=== PATIENT | male | born 1950 | race Hispanic/Latino ===

== ENCOUNTER 2017-07-15 13:57 | Observation (INO) | payer MEDICARE ==
[2017-07-15] MEDS ORDERED: Sodium Chloride 0.9% 1,000 ML IV STA (14:38)
--- NOTE | 2017-07-15 14:45 | ED PDOC ---
Arrival/HPI - General Chief Complaint: Weakness/Neurological Deficit Time Seen by Provider: 07/15/17 13:59 Historian: Patient, Spouse - History of Present Illness Narrative History of Present Illness (Text): you were treated in the ED today for hx of Parkinson'sand walks with a walker, diabetes, sleep apnea, bipolar, diverticulitis, having gouty attack of the left first toe and received a cortisone shot in the toe with improvement and put on ibprofen treatment and having had a single episode of dark vomiting and four episodes of dark black diarrhea and mild abdomen discomfort with generalized weakness/fatigue with difficulty walking but otherwise without any current nausea/vomiting/headache/dizziness/difficulty breathing/chest pain/abdomen pain/ numbness/tingling/loss of limb function/pain with urination. Time/Duration: Other (3 days) Symptom Onset: Gradual Symptom Course: Unchanged Quality: Aching Severity Level: 1 Activities at Onset: Rest Context: Sitting Past Medical History - Provider Review Nursing Documentation Reviewed: Yes - Travel History Have you recently traveled outside [place] w/in the past 3 mons?: No - Infectious Disease Hx of Infectious Diseases: None - Tetanus Immunization Tetanus Immunization: Unknown - Cardiac Hx Cardiac Disorders: No - Pulmonary Hx Respiratory Disorders: Yes Hx Asthma: Yes Hx Bronchitis: Yes - Neurological Hx Neurological Disorder: No - HEENT Hx HEENT Disorder: No - Renal Hx Renal Disorder: No - Endocrine/Metabolic Hx Endocrine Disorders: No Hx Diabetes Mellitus Type 2: Yes - Hematological/Oncological Hx Blood Disorders: No - Integumentary Hx Dermatological Disorder: No - Musculoskeletal/Rheumatological Hx Musculoskeletal Disorders: Yes Hx Falls: Yes Hx Gout: Yes Hx Herniated Disk: No Hx Myasthenia Gravis: No Hx Osteoarthritis: No Hx Unsteady Gait: Yes Other/Comment: PARKINSONS - Gastrointestinal Hx Gastrointestinal Disorders: Yes Hx Gastrointestinal Ulcer: Yes - Genitourinary/Gynecological Hx Genitourinary Disorders: No - Psychiatric Hx Psychophysiologic Disorder: No Hx Substance Use: No - Surgical History Hx Amputation: No Hx Appendectomy: No Hx Cardiac Catheterization: No Hx Cholecystectomy: No Hx Coronary Stent: No Hx Gastric Bypass Surgery: No Hx Hysterectomy: No Hx Joint Replacement: No Hx Kidney Transplant: No Hx Liver Transplant: No Hx Mastectomy: No Hx Musculoskeletal Surgery: No Hx Open Heart Surgery: No Hx Orthopedic Surgery: No Hx Splenectomy: No Hx Valve Replacement: No - Anesthesia Hx Anesthesia Reactions: No Hx Malignant Hyperthermia: No - Suicidal Assessment Feels Threatened In Home Enviroment: No Family/Social History - Physician Review Nursing Documentation Reviewed: Yes Family/Social History: Unknown Family HX Smoking Status: Current Some Days Smoker Hx Alcohol Use: Yes (SOCIALLY) Hx Substance Use: No Hx Substance Use Treatment: No Allergies/Home Meds Allergies/Adverse Reactions: Allergies Sulfa (Sulfonamide Antibiotics) Allergy (Verified 07/15/17 14:12) RASH Home Medications: Home Meds Medication Instructions Recorded Confirmed Enalapril Maleate [Enalapril] 20 mg PO BID 09/13/11 04/30/16 Fluvoxamine Maleate [Fluvoxamine] 100 mg PO DAILY 09/13/11 04/30/16 Carbidopa/Levodopa [Carbidopa-Levo 1 each PO TID 05/09/15 04/30/16 ER 25-100 Tab] Divalproex Sodium 500 mg PO DAILY 05/09/15 04/30/16 Divalproex Sodium 500 mg PO HS 05/09/15 04/30/16 Docusate [Colace] 100 mg PO DAILY 04/27/16 04/30/16 Multivit-Min/FA/Lycopen/Lutein 1 each PO DAILY 04/27/16 04/30/16 [Centrum Silver Men Tablet] ALPRAZolam [Xanax] 1 mg PO TID 04/30/16 Acidoph/L.bulg/Bif.b/S.thermop 1 tab PO DAILY 04/30/16 [Adilia-Bid 5%-80%-10%-5%] Carvedilol [Coreg] 25 mg PO BID 04/30/16 GlipiZIDE [Glucotrol] 5 mg PO BID 04/30/16 Review of Systems - Review of Systems Constitutional: Fatigue Eyes: Normal ENT: Normal Respiratory: Normal Cardiovascular: Normal Gastrointestinal: Abdominal Pain, Stool Changes, Diarrhea Genitourinary Male: Normal Musculoskeletal: Normal Skin: Normal Neurological: Normal Endocrine: Normal Hemo/Lymphatic: Normal Psychiatric: Normal Physical Exam Vital Signs Reviewed: Yes Vital Signs Temp Pulse Resp BP Pulse Ox 07/15/17 17:26 71 18 120/74 100 07/15/17 15:25 97.6 F 69 18 112/46 L 100 Appearance: Positive for: Well-Appearing, Non-Toxic, Comfortable Pain Distress: None Mental Status: Positive for: Alert and Oriented X 3 - Systems Exam Head: Present: Atraumatic, Normocephalic Pupils: Present: PERRL Extroacular Muscles: Present: EOMI Conjunctiva: Present: Normal Ears: Present: Normal Mouth: Present: Moist Mucous Membranes Pharnyx: Present: Normal Nose (External): Present: Atraumatic Nose (Internal): Present: Normal Inspection Neck: Present: Normal Range of Motion Respiratory/Chest: Present: Clear to Auscultation, Good Air Exchange Cardiovascular: Present: Regular Rate and Rhythm Abdomen: No: Tenderness, Distention, Normal Bowel Sounds, Peritoneal Signs, Rebound, Guarding, McBurney's Point Tender, Rovsing's Sign Present, Hernias, Feeding Tubes, Ostomy Tubes, Mass/Organomegaly, Scars, Other Rectal: Present: Occult Blood (positive) Back: Present: Normal Inspection Upper Extremity: Present: Normal Inspection Lower Extremity: Present: Normal Inspection, Other ( left toe without redness and otherwise warm/sensation/pink/good distal pulses and no bony tenderness) Neurological: Present: GCS=15, CN II-XII Intact, Speech Normal, Motor Func Grossly Intact Skin: Present: Warm, Normal Color Psychiatric: Present: Alert, Oriented x 3, Normal Insight, Normal Concentration Medical Decision Making ED Course and Treatment: you were treated in the ED today for hx of Parkinson'sand walks with a walker, diabetes, sleep apnea, bipolar, diverticulitis, having gouty attack of the left first toe and received a cortisone shot in the toe with improvement and put on ibprofen treatment and having had a single episode of dark vomiting and four episodes of dark black diarrhea and mild abdomen discomfort with generalized weakness/fatigue with difficulty walking but otherwise without any current nausea/vomiting/headache/dizziness/difficulty breathing/chest pain/abdomen pain/ numbness/tingling/loss of limb function/pain with urination. You were otherwise breathing easily, smiling and talking easily with your , good strength/ sensation, clear lungs, no abdomen tenderness, rectal exam with dark specks and positive for guaic test but no active bleeding, left toe without redness and otherwise warm/sensation/pink/good distal pulses and no bony tenderness, no fever temp 97.6, stable heart rate 69, stable breathing rate 18, excellent oxygen level 100% room air, stable blood pressure 112/46 which we recommend repeat in 2-3 days primary care office to determine further treatment, you have blood tests no infection count 12, stable blood level hemoglobin 11 but a drop from 18 (2016) and 17 (2012)/platelets 131, stable chemistry, heart blood test negative less than 0.01, lipase normal 133, urine test no acute sign of infection leukocyte/nitrite negative, radiology ct abdomen/pelvis no acute findings, ECG normal sinus rhythm, saline, protonix, observation done in the ED , had long discussion with and patient who refused ct head and stated generalized fatigue due to dehydration/parkinson's and want ivf hydration at this time and agreed to ct abdomen/pelvis. d/w Dr. Brannon who stated can consider [facility] short turn around tomorrow but if patient concern can admit if patient wants due to though blood level hemoglobin 11 but a drop from 18 ( 2016) and 17 (2012)and thus had long discussion with and patient who expressed concern for dark stool and if recurrent episodes to stay in the hospital for further observation/care for gib, thus order protonix, cbc in the am, ivf, Dr. Velez GI consultation. ct a/p: post-operative changes. no bowel obstruction. no sign of diverticulitis. no free air. no fluid collection. 07/15/17 18:56 07/15/17 19:02 07/15/17 19:07 Reassessment Condition: Re-examined - Lab Interpretations Lab Results: 07/15/17 15:35 07/15/17 15:35 Lab Results 07/15/17 17:25: Urine Color Yellow, Urine Appearance Clear, Urine pH 6.0, Ur Specific [place] 1.010, Urine Protein Negative, Urine Glucose (UA) Negative, Urine Ketones Negative, Urine Blood Negative, Urine Nitrate Negative, Urine Bilirubin Negative, Urine Urobilinogen 0.2, Ur Leukocyte Esterase Negative 07/15/17 15:35: Sodium 138, Potassium 5.5 H, Chloride 101, Carbon Dioxide 26, Anion Gap 16, BUN 96 H, Creatinine 1.5, Est GFR ( Amer) 56, Est GFR (Non- Af Amer) 47, Random Glucose 219 H, Calcium 9.3, Magnesium 2.2, Total Bilirubin 0.3, AST 29, ALT 26, Alkaline Phosphatase 31 L, Lactate Dehydrogenase 378, Total Creatine Kinase 83, Troponin I < 0.01, Total Protein 5.5 L, Albumin 3.3, Globulin 2.3, Albumin/Globulin Ratio 1.5, Lipase 133 07/15/17 15:35: PT 12.5, INR 1.09 H, APTT 23.4 L 07/15/17 15:35: WBC 12.0 H D, RBC 3.41 L, Hgb 11.3 L, Hct 32.7 L, MCV 95.9, MCH 33.1, MCHC 34.6, RDW 13.3, Plt Count 131, MPV 10.8, Gran % 60.7, Lymph % (Auto) 32.3, [place] % (Auto) 4.5, Eos % (Auto) 2.2, Baso % (Auto) 0.3, Gran # 7.29 H, Lymph # (Auto) 3.9 H, [place] # (Auto) 0.5, Eos # (Auto) 0.3, Baso # (Auto) 0.04 I have reviewed the lab results: Yes - RAD Interpretation Radiology Orders: 07/15/17 16:10 ABDOMEN & PELVIS [ABD & PELVIS IV CONTRAST ONLY] [CT] Stat Senior Sales Operations Manager: Radiologist (see mdm) - EKG Interpretation Interpreted by ED Physician: Yes (NSR flipped t waves avr, avl) Type: 12 lead EKG - Medication Orders Current Medication Orders: Sodium Chloride (Sodium Chloride 0.9%) 1,000 mls @ 100 mls/hr IV .Q10H ORION Discontinued Medications Sodium Chloride (Sodium Chloride 0.9%) 1,000 mls @ 999 mls/hr IV .Q1H1M STA Stop: 07/15/17 15:38 Last Admin: 07/15/17 15:41 Dose: 999 mls/hr eMAR Start Stop Document 07/15/17 15:41 HI (Rec: 07/15/17 15:41 HI [id number]) Intravenous Solution Start Date 07/15/17 Start Time 15:41 Pantoprazole Sodium (Protonix Inj) 80 mg IVP STAT STA Stop: 07/15/17 14:39 Last Admin: 07/15/17 15:41 Dose: 80 mg IVP Administration Document 07/15/17 15:41 HI (Rec: 07/15/17 15:41 HI [id number]) Charges for Administration # of IVP Administrations 2 Pantoprazole Sodium (Protonix Inj) 40 mg IVP BIDWM STA Stop: 07/15/17 18:45 Disposition/Present on Arrival - Present on Arrival Any Indicators Present on Arrival: No History of DVT/PE: No History of Uncontrolled Diabetes: No Urinary Catheter: No History of Decub. Ulcer: No History Surgical Site Infection Following: None - Disposition Have Diagnosis and Disposition been Completed?: Yes Diagnosis: Gait difficulty, Diarrhea, GIB (gastrointestinal bleeding) Disposition: HOSPITALIZED Disposition Time: 19:09 Patient Plan: Admission Patient Problems: Current Active Problems Problem Status Onset Gait difficulty Acute Diarrhea Acute Condition: STABLE
[2017-07-15 15:44] LABS: BASO # 0.04 K/mm3 (0.0-2.0); BASO % 0.3 % (0.0-3.0); EOS # 0.3 (0.0-0.7); EOS % 2.2 % (1.5-5.0); GRAN # 7.29 (1.4-6.5); GRAN % 60.7 % (50.0-68.0); HEMOGLOBIN 11.3 g/dL (14.0-18.0); LYMPH # 3.9 (1.2-3.4); LYMPH % 32.3 % (22.0-35.0); MEAN CELL VOLUME 95.9 fl (80.0-105.0); MEAN CORPUSCULAR HEMOGLOBIN 33.1 pg (25.0-35.0); MEAN CORPUSCULAR HGB CONC 34.6 g/dl (31.0-37.0); MEAN PLATELET VOLUME 10.8 fl (7.0-11.0); MONO # 0.5 (0.1-0.6); MONO % 4.5 % (1.0-6.0); RBC 3.41 10^6/uL (3.5-6.1); RED CELL DISTRIBUTION WIDTH 13.3 % (11.5-14.5)
[2017-07-15 15:53] LABS: INR 1.09 (0.93-1.08); PARTIAL THROMBOPLASTIN TIME 23.4 Seconds (25.1-36.5); PROTHROMBIN TIME 12.5 SECONDS (9.4-12.5)
[2017-07-15 15:55] LABS: ALB/GLOB RATIO 1.5 (1.1-1.8); ALBUMIN 3.3 g/dL (3.0-4.8); ALT/SGPT 26 U/L (7-56); AST/SGOT 29 U/L (17-59); BLOOD UREA NITROGEN 96 mg/dL (7-21); CALCIUM 9.3 mg/dL (8.4-10.5); GFR AFRICAN-AMERICAN 56; GFR NON-AFRICAN AMERICAN 47; LIPASE 133 U/L (23-300)
[2017-07-15 16:05] LABS: TROPONIN I < 0.01 ng/mL
[2017-07-15] MEDS ORDERED: Iodixanol 320 MG/ML 100 ML BOTTLE IV ONE (16:18)
[2017-07-15 17:36] LABS: URINE BILIRUBIN NEGATIVE (NEGATIVE); URINE BLOOD NEGATIVE (NEGATIVE); URINE GLUCOSE (UA) NEGATIVE (NEGATIVE); URINE LEUKOCYTE ESTERASE NEGATIVE Leu/uL (NEGATIVE); URINE PROTEIN NEGATIVE mg/dL (<30 mg/dL); URINE UROBILINOGEN 0.2 E.U./dL (<1 E.U./dL)
[2017-07-15 17:37] LABS: URINE APPEARANCE CLEAR (CLEAR); URINE COLOR YELLOW (YELLOW)
--- NOTE | 2017-07-15 17:42 | CT ---
PROCEDURE: CT abdomen pelvis dated 07/07/2017. HISTORY: 67yoM, hx of diverticulitis, w abdomen discomfort. 67 year-old male with history of diverticulitis, w abdomen discomfort. . Technologist notation indicates history of umbilical hernia, cholecystectomy, appendectomy and colostomy. COMPARISON: Comparison made with CT scan chest, abdomen pelvis dated 05/12/2012. TECHNIQUE: Contiguous axial images of the abdomen and pelvis performed of following intravenous injection of approximately 100 cc Visipaque 320 contrast material. Additional 2D sagittal and coronal reformats generated. This CT exam was performed using one or more of the following dose reduction techniques: Automated exposure control, adjustment of the mA and/or kV according to patient size, and/or use of iterative reconstruction technique. Radiation dose: Total exam DLP = 769.03 mGy-cm. FINDINGS: LOWER THORAX: R appears mildly enlarged. No significant pericardial effusion. There is some curvilinear atelectasis/scarring changes left medial lung base LIVER: The liver exhibits relatively normal size measuring approximately 16.6 cm in cc dimension. . Mild to moderate fatty hepatic infiltration. No obvious hepatic mass collection or calcification identified. Portal and splenic veins are opacified. GALLBLADDER AND BILE DUCTS: Cholecystectomy PANCREAS: The pancreas appears slightly atrophic and fatty replaced however no evidence pancreatic mass collection or calcification. SPLEEN: Spleen exhibits normal size and attenuation pattern without mass collection or calcification. ADRENALS: No adrenal lesions are identified. KIDNEYS AND URETERS: Kidneys demonstrate symmetric nephrograms. No evidence of nephrolithiasis or hydronephrosis. There is a small approximately 14 mm elliptical shaped cyst arising from the anterior cortex mid to lower pole left kidney. BLADDER: Urinary bladder incompletely distended which in part accounts for thick-walled appearance. Muscular hypertrophy presumably contributes however the other intrinsic/invasive wall lesion not excluded. Urologic consultation could be performed for further evaluation if indicated. REPRODUCTIVE: Prostate gland is enlarged measuring approximately 5.1 cm in transverse dimension. Findings likely due to BPH however correlation with PSA recommended. APPENDIX: Appendix not seen consistent with this patient's history of prior appendectomy BOWEL: Evaluation of the bowel is limited due to the lack of oral contrast material. Stomach is incompletely distended which in part accounts for slight thick-walled appearance. There is an anastomosis seen involving a segment of of proximal small bowel in the mid/left parasagittal abdomen which is locally dilated however there is no evidence of acute mechanical small bowel obstruction. Most of the colon is incompletely distended. There is another anastomosis involving what appears to be the distal descending/sigmoid colon junction. Scattered colonic diverticula are present however no radiographic evidence of acute diverticulitis. PERITONEUM: Unremarkable. No fluid collection. No free air. There is a small fat containing ventral wall hernia. . . There is a small fat containing left inguinal hernia. LYMPH NODES: Unremarkable. No enlarged lymph nodes. VASCULATURE: Unremarkable. No aortic aneurysm. BONES: Mild multilevel degenerative spondylosis of the lower thoracic and lumbar spine. OTHER FINDINGS: None. IMPRESSION: Postoperative changes the on anastomotic changes involving a loop of proximal small bowel which is locally dilated however there is no evidence to suggest acute mechanical bowel obstruction. Another anastomosis involving the distal descending/ sigmoid colon junction. Scattered colonic diverticula without radiographic evidence of acute diverticulitis. No evidence of acute mechanical bowel obstruction. Status post appendectomy. Status post cholecystectomy. . Small cyst left kidney. Fatty hepatic infiltration. Enlarged prostate gland. Correlation with PSA. Wall thickening of the urinary bladder likely due to incomplete distention and muscular hypertrophy however the possibility of intrinsic wall lesion not excluded. Clinical correlation therefore recommended. Follow-up urologic consultation may be prudent. Small fat containing left inguinal hernia and small fat containing ventral wall hernia.
[2017-07-15] MEDS ORDERED: Sodium Chloride 0.9% 1,000 ML IV SCH (18:30)
[2017-07-15 22:33] VITALS: BMI 31.4
[2017-07-15] MEDS ORDERED: Pneumococcal 23-Valent Vaccine IM ONE (22:34)
[2017-07-16 06:39] LABS: BASO # 0.02 K/mm3 (0.0-2.0); BASO % 0.2 % (0.0-3.0); EOS # 0.3 (0.0-0.7); EOS % 3.4 % (1.5-5.0); GRAN # 4.74 (1.4-6.5); GRAN % 53.7 % (50.0-68.0); HEMOGLOBIN 10.6 g/dL (14.0-18.0); LYMPH # 3.1 (1.2-3.4); LYMPH % 34.8 % (22.0-35.0); MEAN CELL VOLUME 94.4 fl (80.0-105.0); MEAN CORPUSCULAR HEMOGLOBIN 32.8 pg (25.0-35.0); MEAN CORPUSCULAR HGB CONC 34.8 g/dl (31.0-37.0); MEAN PLATELET VOLUME 10.7 fl (7.0-11.0); MONO # 0.7 (0.1-0.6); MONO % 7.9 % (1.0-6.0); RBC 3.23 10^6/uL (3.5-6.1); RED CELL DISTRIBUTION WIDTH 13.2 % (11.5-14.5); WHITE BLOOD COUNT 8.8 10^3/ul (4.5-11.0)
[2017-07-16] MEDS: Divalproex 500 mg DR(BID formulation) PO SCH ×2 (11:41→19:11)
[2017-07-16] MEDS: Insulin Reg-LOW-Coverage SC SCH ×3 (11:51→21:54)
--- NOTE | 2017-07-16 12:20 | CP.PCM.CON ---
<Meenakshi Vásquez - Last Filed: 07/16/17 13:34> History of Present Illness - History of Present Illness History of Present Illness: Seen and examined at bedside earlier today, chart reviewed. Request for GI consult is for dark black stool, positive "blood. HPI: This is a 67-year-old male with a history of Parkinson's disease, diabetes , diverticulitis with colectomy came to the emergency room with report of having episodes of dark black diarrhea, abdominal pain and generalized weakness. Patient also reported having one episode of dark vomitus simultaneously 1 having diarrhea. Patient denies any symptoms of dyspepsia, no reports of any weight loss or loss of appetite or dysphagia. Patient reported having a gout attack, saw his doctor who placed 2 gave him a cortisone shot and put him on ibuprofen, this was guarded on Saturday. He denies any previous use of NSAIDs. Patient has since had no episodes of dark vomitus, he did have a bowel movement and it still appeared black. On admission he had a CT scan of abdomen and pelvis with IV contrast and showed a fatty liver and postop changes in the bowel, anastomotic site is noted. Patient has scattered diverticula no bowel obstruction or signs of diverticulitis. He tolerated a bowl of oatmeal this morning. Patient is noted to have his last endoscopy in April 2012 has history of ulcers, gastric biopsies negative for H. pylori did show chronic inflammation. Last colonoscopy was January 2012 found to have a hyperplastic sigmoid polyp. In the ER he was found to be local positive. Patient reports he has had no further episodes of diarrhea. Past medical history: Parkinson's disease, gastric ulcer, hyperplastic colon polyp, gout, asthma, bronchitis, diabetes mellitus type 2 Past surgical history diverticulitis with perforation as per patient had a resection with reversed colostomy, cholecystectomy, appendectomy, last EGD 2012 , colonoscopy 2011 Family history: Noncontributory to this time Allergies: Sulfa Social history: History of tobacco use, drinks alcohol socially, denies illicit drugs Medications: Reviewed as per MAR ROS: Systems reviewed with positive finding see HPI Past Patient History - Infectious Disease Hx of Infectious Diseases: None - Tetanus Immunizations Tetanus Immunization: Unknown - Past Social History Smoking Status: Former Smoker - CARDIAC Hx Cardiac Disorders: No Hx Hypertension: Yes - PULMONARY Hx Respiratory Disorders: Yes Hx Asthma: Yes Hx Bronchitis: Yes Hx Pneumonia: Yes Hx Sleep Apnea: Yes (inconclusive sleep study) - NEUROLOGICAL Hx Neurological Disorder: Yes (near syncope) Hx Parkinson's Disease: Yes - HEENT Hx HEENT Problems: Yes (eyeglasses) - RENAL Hx Chronic Kidney Disease: No - ENDOCRINE/METABOLIC Hx Endocrine Disorders: No Hx Diabetes Mellitus Type 2: Yes - HEMATOLOGICAL/ONCOLOGICAL Hx Blood Disorders: Yes Hx Anemia: Yes - INTEGUMENTARY Hx Dermatological Problems: Yes Other/Comment: small healing wound below r knee, left great toe slight redness from gout - MUSCULOSKELETAL/RHEUMATOLOGICAL Hx Falls: Yes (past) - GASTROINTESTINAL Hx Gastrointestinal Disorders: Yes Other/Comment: ruptured diverticulitis colostomy reversal 1991 - GENITOURINARY/GYNECOLOGICAL Hx Genitourinary Disorders: No Hx Prostate Problems: (psa high normal/checkup 2xa yr dr urena) - PSYCHIATRIC Hx Substance Use: No - SURGICAL HISTORY Hx Amputation: No Hx Appendectomy: Yes Hx Cardiac Catheterization: No Hx Cholecystectomy: Yes Hx Coronary Stent: No Hx Gastric Bypass Surgery: No Hx Hysterectomy: No Hx Joint Replacement: No Hx Kidney Transplant: No Hx Liver Transplant: No Hx Mastectomy: No Hx Musculoskeletal Surgery: No Hx Open Heart Surgery: No Hx Orthopedic Surgery: No Hx Splenectomy: No Hx Valve Replacement: No Other/Comment: tonsillectomy age 9 - ANESTHESIA Hx Anesthesia Reactions: No Hx Malignant Hyperthermia: No Meds Allergies/Adverse Reactions: Allergies Allergy/AdvReac Type Severity Reaction Status Date / Time Sulfa (Sulfonamide Allergy RASH Verified 07/15/17 14:12 Antibiotics) - Medications Medications: Current Medications Alprazolam (Xanax) 1 mg PO TID PRN; Protocol PRN Reason: Anxiety Carbidopa/Levodopa (Sinemet Cr) 1 tab PO TID [facility] Carvedilol (Coreg) 25 mg PO BID [facility] Last Admin: 07/16/17 11:41 Dose: 25 mg Divalproex Sodium (Depakote Dr(*Bid*)) 500 mg PO BID [facility] PRN Reason: Protocol Last Admin: 07/16/17 11:41 Dose: 500 mg Insulin Human Regular (Humulin R Low) 0 units SC ACHS [facility] PRN Reason: Protocol Last Admin: 07/16/17 11:51 Dose: 2 units Lisinopril (Zestril) 10 mg PO DAILY [facility] Last Admin: 07/16/17 11:41 Dose: 10 mg Metformin HCl (Glucophage) 500 mg PO BID [facility] Last Admin: 07/16/17 11:41 Dose: 500 mg Pantoprazole Sodium (Protonix Ec Tab) 40 mg PO 0600 [facility] Physical Exam - Constitutional Appears: No Acute Distress - Head Exam Head Exam: NORMOCEPHALIC - Eye Exam Eye Exam: Normal appearance. absent: Scleral icterus - ENT Exam ENT Exam: Mucous Membranes Moist - Neck Exam Neck exam: Positive for: Normal Inspection - Respiratory Exam Respiratory Exam: NORMAL BREATHING PATTERN. absent: Respiratory Distress - Cardiovascular Exam Cardiovascular Exam: +S1, +S2 - GI/Abdominal Exam GI & Abdominal Exam: Normal Bowel Sounds, Soft. absent: Guarding, Organomegaly , Rebound, Tenderness - Extremities Exam Extremities exam: Positive for: pedal pulses present. Negative for: calf tenderness, pedal edema - Neurological Exam Neurological exam: Alert, Oriented x3 - Skin Skin Exam: Dry, Warm Results - Vital Signs Recent Vital Signs: Last Vital Signs Temp 97.9 F 07/16/17 07:42 Pulse 75 07/16/17 11:41 Resp 18 07/16/17 07:42 BP 158/87 H 07/16/17 11:41 Pulse Ox 94 L 07/16/17 07:42 - Labs Result Diagrams: 07/16/17 05:45 07/15/17 15:35 Labs: Laboratory Results - last 24 hr 07/16/17 07/16/17 05:45 11:44 WBC 8.8 D RBC 3.23 L Hgb 10.6 L Hct 30.5 L MCV 94.4 MCH 32.8 MCHC 34.8 RDW 13.2 Plt Count 116 L MPV 10.7 Gran % 53.7 Lymph % (Auto) 34.8 Hardy % (Auto) 7.9 H Eos % (Auto) 3.4 Baso % (Auto) 0.2 Gran # 4.74 Lymph # (Auto) 3.1 Hardy # (Auto) 0.7 H Eos # (Auto) 0.3 Baso # (Auto) 0.02 POC Glucose (mg/dL) 246 H Assessment & Plan - Assessment and Plan (Free Text) Assessment: Assessment: GI bleed, patient complaining of dark stools, occult positive, differentials to consider is peptic ulcer disease, patient does have history of gastric ulcers, also consider angiodysplasia Anemia likely secondary to above Gout attack, started on ibuprofen treatment History of Parkinson's disease History of gastric ulcers and colon polyp Diabetes mellitus History of perforated diverticulitis with resection and reverse colostomy Plan: Diet as tolerated Monitor H&H and monitor for overt GI bleed Continue PPI Patient would benefit from upper endoscopy, we will plan for this on 07/17/2017, nothing by mouth after midnight Thank you for this consult and for allowing us to participate in your patient's care, further recommendations based upon clinical course. Seen and discussed with Dr. Velez. <Tabby Velez V - Last Filed: 07/16/17 21:02> Meds - Medications Medications: Current Medications Alprazolam (Xanax) 1 mg PO TID PRN; Protocol PRN Reason: Anxiety Carbidopa/Levodopa (Sinemet Cr) 1 tab PO TID [facility] Last Admin: 07/16/17 19:11 Dose: 1 tab Carvedilol (Coreg) 25 mg PO BID [facility] Last Admin: 07/16/17 19:11 Dose: 25 mg Divalproex Sodium (Depakote Dr(*Bid*)) 500 mg PO BID [facility] PRN Reason: Protocol Last Admin: 07/16/17 19:11 Dose: 500 mg Insulin Human Regular (Humulin R Low) 0 units SC ACHS [facility] PRN Reason: Protocol Last Admin: 07/16/17 19:11 Dose: 3 units Lisinopril (Zestril) 10 mg PO DAILY [facility] Last Admin: 07/16/17 11:41 Dose: 10 mg Metformin HCl (Glucophage) 500 mg PO BID [facility] Last Admin: 07/16/17 19:11 Dose: 500 mg Pantoprazole Sodium (Protonix Ec Tab) 40 mg PO 0600 [facility] Results - Vital Signs Recent Vital Signs: Last Vital Signs Temp 97.9 F 07/16/17 18:00 Pulse 73 07/16/17 18:00 Resp 19 07/16/17 18:00 BP 130/77 07/16/17 18:00 Pulse Ox 95 07/16/17 18:00 - Labs Result Diagrams: 07/16/17 05:45 07/15/17 15:35 Labs: Laboratory Results - last 24 hr 07/16/17 07/16/17 07/16/17 05:45 11:44 15:56 WBC 8.8 D RBC 3.23 L Hgb 10.6 L Hct 30.5 L MCV 94.4 MCH 32.8 MCHC 34.8 RDW 13.2 Plt Count 116 L MPV 10.7 Gran % 53.7 Lymph % (Auto) 34.8 Hardy % (Auto) 7.9 H Eos % (Auto) 3.4 Baso % (Auto) 0.2 Gran # 4.74 Lymph # (Auto) 3.1 Hardy # (Auto) 0.7 H Eos # (Auto) 0.3 Baso # (Auto) 0.02 POC Glucose (mg/dL) 246 H 256 H Attending/Attestation - Attestation I have personally seen and examined this patient.: Yes I have fully participated in the care of the patient.: Yes I have reviewed all pertinent clinical information: Yes Notes (Text): This is an addendum to GI progress report dictated by Meenakshi Vásquez APN.The patient was seen and examined earlier. Medical records, lab studies, imagings were reviewed. Last 24 hours events reviewed. Agreed with the above treatment plan as outlined in Meenakshi Vásquez APN's notes with the addition of the following History of gastric ulcer, on nonsteroidal anti-inflammatory drugs admitted with the melena On Protonix by mouth on examination abdomen soft no mass no tenderness We will increas protonix 40mg IV push q12 Close follow-up of hemogltocrit Scheduled for EGD tomorrow Discussed with the patien patient's was at bedside 07/16/17 20:59
--- NOTE | 2017-07-16 14:30 | CARD ---
APPROVED REPORT EKG Measurement Heart [id number] <Conclusion> Normal sinus rhythm Normal ECG
[2017-07-16] MEDS: Carbidopa/Levodopa 50/200 CR PO SCH ×2 (15:39→19:11)
--- NOTE | 2017-07-17 01:23 | HP ---
HISTORY OF PRESENT ILLNESS: The patient is a 67-year-old male admitted through the emergency department complaining of a 2-day history of black stool. The patient was noted on CBC to have a drop from previous hemoglobin and hematocrit levels and is admitted for further evaluation and treatment. The patient recently had an attack of acute gouty arthritis and received a cortisone shot as well as prescription for oral ibuprofen, which he has been taking for the past few days. He denies any abdominal pain. No nausea, no vomiting, no bright red blood per rectum, no fever, no chills, no jaundice. PAST MEDICAL HISTORY: Includes Parkinson's disease, type 2 diabetes mellitus with diabetic neuropathy, hypertension, history of diverticulitis, obstructive sleep apnea and bipolar disorder with obsessive compulsive disorder. PAST SURGICAL HISTORY: Includes history of cholecystectomy and colon surgery. CURRENT MEDICATIONS: Include Xanax 1 mg twice daily, valproic acid 500 mg twice daily, enalapril 20 mg daily, fluvoxamine 100 mg daily, glimepiride 2 mg daily, metformin 1000 mg twice daily, carvedilol 25 mg twice daily and Sinemet CR 50/200 one tab three to four times daily. ALLERGIES: THE PATIENT IS ALLERGIC TO SULFA WITH A RASH. FAMILY HISTORY: Noncontributory. SOCIAL HISTORY: The patient smokes a pipe. There is no history of alcohol or drug use. REVIEW OF SYSTEMS: The patient denies any chest pain, shortness of breath or swelling of the legs. The patient ambulates short distances with a walker and is independent with ADLs and needs some assistance with IADLs. PHYSICAL EXAMINATION: GENERAL: The patient is a slightly cachectic male, in no acute distress. VITAL SIGNS: Blood pressure 157/87, temperature 97.9, pulse 75, respiratory rate 18. HEENT: Head is normocephalic, atraumatic. Pupils equal, round, reactive to light. Extraocular movements intact. NECK: Supple with no thyromegaly. No carotid bruit. No adenopathy. LUNGS: Clear. HEART: Regular rate and rhythm. ABDOMEN: Soft, nontender. Bowel sounds are normoactive. EXTREMITIES: Without cyanosis, clubbing or edema. NEUROLOGICAL: The patient is awake and oriented x3 without focal sensory or motor deficit. There is some cogwheeling of the upper extremities bilaterally. SKIN: Warm and dry without rashes. LABORATORY DATA: WBC is 8.8, hemoglobin 10.6, hematocrit 30.5, platelets 116. Sodium 138, potassium 5.5, chloride 101, CO2 of 26, BUN 96, creatinine 1.5, glucose is 219. Troponin is less than 0.01. CT scan of the abdomen and pelvis showed no evidence of intestinal obstruction. Chest x-ray showed no active disease. IMPRESSION: 1. Probable upper gastrointestinal bleed secondary to nonsteroidal anti-inflammatory drugs. 2. Parkinson's disease. 3. Type 2 diabetes mellitus with diabetic neuropathy. 4. Hypertension. 5. Hypercholesterolemia. 6. Bipolar disorder/obsessive-compulsive disorder. PLAN: The patient is admitted to the remote telemetry unit for further evaluation and management. We will monitor hemoglobin and hematocrit. Start the patient on oral PPI. Obtain GI consultation with Dr. Velez for possible EGD. Discontinue use of nonsteroidal anti-inflammatory drugs. Monitor glucose levels. Physical Therapy and Social Work for discharge planning. PIERRE Kingston MD
[2017-07-17] MEDS: Pantoprazole 40 mg EC Tab PO SCH (05:25)
[2017-07-17 06:49] LABS: BASO # 0.02 K/mm3 (0.0-2.0); BASO % 0.3 % (0.0-3.0); EOS # 0.2 (0.0-0.7); EOS % 3.4 % (1.5-5.0); GRAN # 3.41 (1.4-6.5); GRAN % 48.1 % (50.0-68.0); HEMOGLOBIN 10.5 g/dL (14.0-18.0); LYMPH # 2.9 (1.2-3.4); LYMPH % 40.6 % (22.0-35.0); MEAN CELL VOLUME 95.6 fl (80.0-105.0); MEAN CORPUSCULAR HEMOGLOBIN 33.2 pg (25.0-35.0); MEAN CORPUSCULAR HGB CONC 34.8 g/dl (31.0-37.0); MEAN PLATELET VOLUME 10.6 fl (7.0-11.0); MONO # 0.5 (0.1-0.6); MONO % 7.6 % (1.0-6.0); RBC 3.16 10^6/uL (3.5-6.1); RED CELL DISTRIBUTION WIDTH 13.1 % (11.5-14.5); WHITE BLOOD COUNT 7.1 10^3/ul (4.5-11.0)
[2017-07-17 07:20] LABS: ALB/GLOB RATIO 1.3 (1.1-1.8); ALBUMIN 3.2 g/dL (3.0-4.8); ALT/SGPT 36 U/L (7-56); AST/SGOT 56 U/L (17-59); BLOOD UREA NITROGEN 26 mg/dL (7-21); CALCIUM 8.7 mg/dL (8.4-10.5); GFR AFRICAN-AMERICAN > 60; GFR NON-AFRICAN AMERICAN > 60
[2017-07-17] MEDS: Insulin Reg-LOW-Coverage SC SCH ×4 (07:30→22:02)
--- NOTE | 2017-07-17 09:44 | CP.PCM.PN ---
Subjective - Date & Time of Evaluation Date of Evaluation: 07/17/17 Time of Evaluation: 09:30 - Subjective Subjective: NAD, no abd pain, no melena, no BRBPR Objective - Vital Signs/Intake and Output Vital Signs (last 24 hours): Temp Pulse Resp BP Pulse Ox 98.2 F 66 18 145/76 93 L 07/17/17 06:00 07/17/17 06:00 07/17/17 06:00 07/17/17 06:00 07/17/17 06:00 Intake and Output: 07/17/17 07/17/17 06:59 18:59 Output Total 150 Balance -150 - Medications Medications: Current Medications Alprazolam (Xanax) 1 mg PO TID PRN; Protocol PRN Reason: Anxiety Carbidopa/Levodopa (Sinemet Cr) 1 tab PO TID [facility] Last Admin: 07/16/17 19:11 Dose: 1 tab Carvedilol (Coreg) 25 mg PO BID [facility] Last Admin: 07/16/17 19:11 Dose: 25 mg Divalproex Sodium (Depakote Dr(*Bid*)) 500 mg PO BID [facility] PRN Reason: Protocol Last Admin: 07/16/17 19:11 Dose: 500 mg Insulin Human Regular (Humulin R Low) 0 units SC ACHS [facility] PRN Reason: Protocol Last Admin: 07/16/17 21:54 Dose: Not Given Lisinopril (Zestril) 10 mg PO DAILY [facility] Last Admin: 07/16/17 11:41 Dose: 10 mg Metformin HCl (Glucophage) 500 mg PO BID [facility] Last Admin: 07/16/17 19:11 Dose: 500 mg Pantoprazole Sodium (Protonix Ec Tab) 40 mg PO 0600 [facility] Last Admin: 07/17/17 05:25 Dose: Not Given - Labs Labs: 07/17/17 06:15 07/17/17 06:15 PT 12.5 SECONDS (9.4-12.5) 07/15/17 15:35 INR 1.09 (0.93-1.08) H 07/15/17 15:35 APTT 23.4 Seconds (25.1-36.5) L 07/15/17 15:35 - Respiratory Exam Respiratory Exam: Clear to Ausculation Bilateral, NORMAL BREATHING PATTERN - Cardiovascular Exam Cardiovascular Exam: REGULAR RHYTHM - GI/Abdominal Exam GI & Abdominal Exam: Soft, Normal Bowel Sounds - Extremities Exam Extremities Exam: Normal Inspection - Neurological Exam Neurological Exam: Alert, Awake - Skin Skin Exam: Dry, Warm Assessment and Plan (1) GIB (gastrointestinal bleeding) Status: Acute (2) Parkinsons disease Status: Chronic - Assessment and Plan (Free Text) Plan: for EGD today, Hb 10.5 stable, continue PPI, GI follow-up
[2017-07-17] MEDS: Carbidopa/Levodopa 50/200 CR PO SCH ×3 (09:55→17:29)
[2017-07-17] MEDS: Divalproex 500 mg DR(BID formulation) PO SCH ×2 (09:55→17:29)
--- NOTE | 2017-07-17 11:10 | RAD ---
HISTORY: pre-op for endo COMPARISON: 04/27/2016 TECHNIQUE: Chest PA and lateral FINDINGS: LUNGS: No active pulmonary disease. PLEURA: No significant pleural effusion identified. No pneumothorax apparent. CARDIOVASCULAR: Normal. OSSEOUS STRUCTURES: No significant abnormalities. VISUALIZED UPPER ABDOMEN: Normal. OTHER FINDINGS: None. IMPRESSION: No active disease.
[2017-07-17] MEDS ORDERED: Propofol 10 mg/ml Inj (20 ML) ONE ×2 (14:24)
[2017-07-17] MEDS ORDERED: Sodium Chloride 0.9% 1,000 ML IV SCH (14:30)
[2017-07-17 16:50] VITALS: TEMP 98.1
[2017-07-18] MEDS: Pantoprazole 40 mg EC Tab PO SCH (05:22)
[2017-07-18] MEDS: Insulin Reg-LOW-Coverage SC SCH (08:24)
[2017-07-18] MEDS: Divalproex 500 mg DR(BID formulation) PO SCH (09:17)
[2017-07-18] MEDS: Carbidopa/Levodopa 50/200 CR PO SCH (09:17)
[2017-07-18 09:19] VITALS: PULSE 72
[2017-07-18 09:24] VITALS: BP 154/85; RESP 20; O2SAT 95
--- NOTE | 2017-07-18 15:53 | CP.PCM.PN ---
<Meenakshi Vásquez - Last Filed: 07/18/17 15:52> Subjective - Date & Time of Evaluation Date of Evaluation: 07/18/17 Time of Evaluation: 10:10 - Subjective Subjective: Seen and examined at the bedside this morning, patient being prepared for discharge. He did have a bowel movement this morning and it was reported to be brown. Patient had endoscopy yesterday and found to have ulcers. Patient tolerated oral intake, no reports of nausea vomiting or abdominal pain. Objective - Vital Signs/Intake and Output Vital Signs (last 24 hours): Temp Pulse Resp BP Pulse Ox 98.1 F 72 20 154/85 H 95 07/18/17 09:24 07/18/17 09:24 07/18/17 09:24 07/18/17 09:24 07/18/17 09:24 Intake and Output: 07/18/17 07/18/17 06:59 18:59 Intake Total 120 Output Total 0 Balance 120 - Medications Medications: Current Medications Alprazolam (Xanax) 1 mg PO TID PRN; Protocol PRN Reason: Anxiety Carbidopa/Levodopa (Sinemet Cr) 1 tab PO TID [facility] Last Admin: 07/18/17 09:17 Dose: 1 tab Carvedilol (Coreg) 25 mg PO BID [facility] Last Admin: 07/18/17 09:17 Dose: 25 mg Divalproex Sodium (Depakote Dr(*Bid*)) 500 mg PO BID [facility] PRN Reason: Protocol Last Admin: 07/18/17 09:17 Dose: 500 mg Insulin Human Regular (Humulin R Low) 0 units SC ACHS [facility] PRN Reason: Protocol Last Admin: 07/18/17 08:24 Dose: Not Given Lisinopril (Zestril) 10 mg PO DAILY [facility] Last Admin: 07/18/17 09:16 Dose: 10 mg Metformin HCl (Glucophage) 500 mg PO BID [facility] Last Admin: 07/18/17 09:17 Dose: 500 mg Pantoprazole Sodium (Protonix Ec Tab) 40 mg PO 0600 [facility] Last Admin: 07/18/17 05:22 Dose: 40 mg - Labs Labs: 07/17/17 06:15 07/17/17 06:15 PT 12.5 SECONDS (9.4-12.5) 07/15/17 15:35 INR 1.09 (0.93-1.08) H 07/15/17 15:35 APTT 23.4 Seconds (25.1-36.5) L 07/15/17 15:35 - Constitutional Appears: No Acute Distress - Head Exam Head Exam: NORMOCEPHALIC - Eye Exam Eye Exam: Normal appearance. absent: Scleral icterus - ENT Exam ENT Exam: Mucous Membranes Moist - Neck Exam Neck Exam: Normal Inspection - Respiratory Exam Respiratory Exam: NORMAL BREATHING PATTERN. absent: Respiratory Distress - Cardiovascular Exam Cardiovascular Exam: +S1, +S2 - GI/Abdominal Exam GI & Abdominal Exam: Soft, Normal Bowel Sounds. absent: Guarding, Tenderness, Organomegaly, Rebound - Extremities Exam Extremities Exam: absent: Calf Tenderness - Neurological Exam Neurological Exam: Alert, Awake, Oriented x3 - Skin Skin Exam: Dry, Warm Assessment and Plan - Assessment and Plan (Free Text) Assessment: Assessment: Status post EGD found to have 1 nonbleeding cratered gastric ulcer and superficial gastric ulcer GI bleed, patient complaining of dark stools, occult positive, differentials to consider is peptic ulcer disease, patient does have history of gastric ulcers, also consider angiodysplasia Anemia likely secondary to above Gout attack, started on ibuprofen treatment History of Parkinson's disease History of gastric ulcers and colon polyp Diabetes mellitus History of perforated diverticulitis with resection and reverse colostomy Plan: Diet as tolerated Monitor H&H and monitor for overt GI bleed Continue PPI Discussed with patient prior to discharge continue with Protonix daily and to avoid use of NSAIDs. Also made aware that he will need a repeat endoscopy in 2 months time to check healing of ulcers. Seen and discussed with Dr. Velez. <Tabby Velez V - Last Filed: 07/18/17 22:27> Objective - Vital Signs/Intake and Output Vital Signs (last 24 hours): Temp Pulse Resp BP Pulse Ox 98.1 F 72 20 154/85 H 95 07/18/17 09:24 07/18/17 09:24 07/18/17 09:24 07/18/17 09:24 07/18/17 09:24 - Labs Labs: 07/17/17 06:15 07/17/17 06:15 PT 12.5 SECONDS (9.4-12.5) 07/15/17 15:35 INR 1.09 (0.93-1.08) H 07/15/17 15:35 APTT 23.4 Seconds (25.1-36.5) L 07/15/17 15:35 Attending/Attestation - Attestation I have personally seen and examined this patient.: Yes I have fully participated in the care of the patient.: Yes I have reviewed all pertinent clinical information, including history, physical exam and plan: Yes Notes (Text): This is an addendum to GI progress report dictated by Meenakshi Vásquez APN.The patient was seen and examined earlier. Medical records, lab studies, imagings were reviewed. Last 24 hours events reviewed. Agreed with the above treatment plan as outlined in Meenakshi Vásquez APN's notes the with the addition of the following 07/18/17 22:26
--- NOTE | 2017-07-19 05:15 | DS ---
HOSPITAL COURSE: The patient is a 67-year-old male admitted to the emergency department on 07/15/2017 with black stools. The patient was noted to have a drop in hemoglobin and hematocrit from previous levels and was admitted to the remote telemetry unit for further evaluation and management. He was seen in consultation by GI, Dr. Velez, who performed an EGD on 07/17/2017, which was significant for antral gastric ulcers, probably secondary to nonsteroidals which the patient had been on for an acute attack of gout. Patient's hemoglobin stabilized at 10.5. He was started on PPIs and is now medically stable for discharge to home. PHYSICAL EXAMINATION: VITAL SIGNS: Blood pressure 154/85, temperature 98.1, pulse 72, respiratory rate 20. LUNGS: Clear. HEART: Regular rate and rhythm. ABDOMEN: Soft, nontender. Bowel sounds are normoactive. EXTREMITIES: Without cyanosis, clubbing, or edema. NEUROLOGICAL: Patient is awake and oriented x3 without focal sensory or motor deficits. There is bilateral cogwheeling and rigidity of the upper extremities bilaterally. IMPRESSION: 1. Upper gastrointestinal bleed secondary to nonsteroidal anti-inflammatory drugs. 2. Parkinson disease. 3. Type 2 diabetes mellitus with diabetic neuropathy. 4. Hypertension. 5. Hypercholesterolemia. 6. Bipolar disorder/obsessive-compulsive disorder. PLAN: The patient will be discharged to home in stable condition on the following medications: Xanax 1 mg twice daily, valproic acid 500 mg daily, enalapril 20 mg daily, fluvoxamine 100 mg daily, glimepiride 2 mg daily, metformin 1000 mg twice daily, carvedilol 25 mg twice daily, Sinemet CR 50/200 one tablet three to four times daily. The patient will be maintained on a heart-healthy diet. Activities ad libitum. Will be seen in the office within the next 1 to 2 weeks for followup. He was advised to discontinue any nonsteroidal anti-inflammatories and maintain a bland diet and return for any evidence of GI bleeding including black tarry stools or bright red blood per rectum. PIERRE Kingston MD
== END 2017-07-18 11:33 | disposition home or self-care (01) ==
LOC: ED 13:57 → ERH 18:46 → 3RNO 20:20
PROVIDERS: ADMIT Internal Medicine; ATTEND Internal Medicine
DX: K92.2 Gastrointestinal hemorrhage, unspecified (principal); T39.395A Adverse effect of other nonsteroidal anti-inflammatory drugs [NSAID], initial encounter; K25.9 Gastric ulcer, unspecified as acute or chronic, without hemorrhage or perforation; K29.80 Duodenitis without bleeding; D64.9 Anemia, unspecified; G20 Parkinson's disease; I10 Essential (primary) hypertension; E11.40 Type 2 diabetes mellitus with diabetic neuropathy, unspecified; F42.9 Obsessive-compulsive disorder, unspecified; F31.9 Bipolar disorder, unspecified; E78.00 Pure hypercholesterolemia, unspecified; M10.9 Gout, unspecified; G47.33 Obstructive sleep apnea (adult) (pediatric); R26.2 Difficulty in walking, not elsewhere classified; F17.290 Nicotine dependence, other tobacco product, uncomplicated; Z86.010 Personal history of colon polyps; Z90.49 Acquired absence of other specified parts of digestive tract; Z88.2 Allergy status to sulfonamides
CPT/HCPCS: 36415; 43235; 71046; 74177; 80053; 81003; 82550; 82948; 83615; 83690; 83735; 84484; 85025; 85610; 85730; 87086; 93005; 96374; 96376; 97116; 97162; 99285; C9113; G0378; G8978; G8979; J2001; J2704; J7030; J7040; Q9967

== ENCOUNTER 2018-06-19 11:49 | Inpatient (IN) | payer MEDICARE ==
[2018-06-19 11:50] VITALS: BMI 32.5
[2018-06-19 13:04] LABS: VENOUS BLOOD GAS BASE EXCESS 1.2 mmol/L (0.0-2.0); VENOUS BLOOD GAS PO2 31 mm/Hg (30-55); VENOUS BLOOD PH 7.28 (7.32-7.43)
[2018-06-19 13:15] LABS: BASO # 0.03 K/mm3 (0.0-2.0); BASO % 0.2 % (0.0-3.0); EOS # 1.1 (0.0-0.7); EOS % 8.4 % (1.5-5.0); HEMOGLOBIN 17.5 g/dL (14.0-18.0); LYMPH # 3.3 (1.2-3.4); LYMPH % 24.7 % (22.0-35.0); MEAN CELL VOLUME 93.4 fl (80.0-105.0); MEAN CORPUSCULAR HEMOGLOBIN 31.2 pg (25.0-35.0); MEAN CORPUSCULAR HGB CONC 33.4 g/dl (31.0-37.0); MEAN PLATELET VOLUME 11.4 fl (7.0-11.0); MONO # 0.7 (0.1-0.6); MONO % 5.2 % (1.0-6.0); RBC 5.61 10^6/uL (3.5-6.1); WHITE BLOOD COUNT 13.2 10^3/uL (4.5-11.0)
[2018-06-19 13:24] LABS: INR 1.19; PARTIAL THROMBOPLASTIN TIME 29.5 Seconds (26.9-38.3); PROTHROMBIN TIME 13.4 SECONDS (9.4-12.5)
[2018-06-19 13:28] LABS: ALB/GLOB RATIO 1.3 (1.1-1.8); ALBUMIN 3.7 g/dL (3.0-4.8); ALT/SGPT 8 U/L (7-56); AST/SGOT 43 U/L (17-59); BLOOD UREA NITROGEN 51 mg/dL (7-21); CALCIUM 8.9 mg/dL (8.4-10.5); GFR NON-AFRICAN AMERICAN 20; LIPASE 604 U/L (23-300)
[2018-06-19 13:39] LABS: TROPONIN I < 0.01 ng/mL
[2018-06-19] MEDS: Sodium Chloride 0.9% 1,000 ML IV SCH (13:50)
--- NOTE | 2018-06-19 14:47 | CT ---
Date of service: 06/19/2018 PROCEDURE: CT Abdomen and Pelvis without intravenous contrast HISTORY: Diffuse tenderness and diarrhea COMPARISON: 07/15/2017. TECHNIQUE: CT scan of the abdomen and pelvis was performed without administration of intravenous contrast. Oral contrast was not administered. Coronal and sagittal reformatted images were obtained. Radiation dose: Total exam DLP = 937.18 mGy-cm. This CT exam was performed using one or more of the following dose reduction techniques: Automated exposure control, adjustment of the mA and/or kV according to patient size, and/or use of iterative reconstruction technique. FINDINGS: LOWER THORAX: There is subsegmental atelectasis in the lung bases. Mild cardiomegaly P LIVER: Mild hepatomegaly and fatty liver. No gross lesion or ductal dilatation. GALLBLADDER AND BILE DUCTS: Well distended. No calcified gallstones. No common bile duct dilatation. PANCREAS: Normal in size. No gross lesion or ductal dilatation. SPLEEN: Normal in size. ADRENALS: Normal in size. No discrete nodule. KIDNEYS AND URETERS: Both kidneys are normal in size. No hydronephrosis. There are small nonobstructing stones in the right kidney, the largest in the upper pole measures 4 mm. There is a subcentimeter nonspecific calcification in the lower pole of the right kidney. There is a small simple cyst in the lower pole of the left kidney. There is nonspecific perinephric fat stranding. VASCULATURE: Normal in caliber. No aortic aneurysm. No aortic atherosclerotic calcification or mural plaque present. BOWEL: Evaluation of the bowel is limited in the absence of oral contrast. The proximal small bowel loops are normal in caliber. There is mild dilatation of fluid-filled mid small bowel loops. The terminal ileum and ileocecal junction are normal. There are postsurgical changes in the mid small bowel loops. There is colonic diverticulosis without CT evidence for acute diverticulitis. There are postsurgical changes partial sigmoid colon resection APPENDIX: Surgically absent. PERITONEUM: No free fluid. No free air. LYMPH NODES: No enlarged lymph nodes. BLADDER: Well distended. There is apparent mild circumferential mural thickening and irregularity of the urinary bladder wall. REPRODUCTIVE: There is mild enlargement of the prostate gland. BONES: No acute fracture. Within normal limits for the patient's age. OTHER FINDINGS: There is a small fat containing inguinal hernia and right supraumbilical paramedian ventral hernia. IMPRESSION: 1. Mild dilatation of fluid-filled mid small bowel loops which could represent nonspecific infectious/inflammatory enteritis. 2. Postsurgical changes in mid small bowel loop and partial sigmoid colon resection. Colonic diverticulosis without CT evidence for acute diverticulitis. 3. Small nonobstructing stones in the right kidney, the largest measures 4 mm. 4. Mild circumferential mural thickening of the urinary bladder wall with irregularity is nonspecific and could represent cystitis in the appropriate clinical setting. Please correlate with urine analysis. 5. Mild enlargement of the prostate gland. Please correlate with PSA levels.
--- NOTE | 2018-06-19 14:57 | CT ---
Date of service: 06/19/2018 PROCEDURE: CT Thoracic Spine without contrast HISTORY: s/p fall r/o fx COMPARISON: None available. TECHNIQUE: Axial computed tomography images were obtained of the thoracic spine without intravenous contrast. Coronal and sagittal reformatted images were created and reviewed. Radiation dose: Total exam DLP = 1008.85 mGy-cm. This CT exam was performed using one or more of the following dose reduction techniques: Automated exposure control, adjustment of the mA and/or kV according to patient size, and/or use of iterative reconstruction technique. FINDINGS: VERTEBRAE: There is normal alignment of the thoracic vertebral bodies. There is normal thoracic kyphosis. There is mild diffuse bone demineralization. There is no acute fracture or destructive bony lesion. DISCS/SPINAL CANAL/NEURAL FORAMINA: Evaluation of the discs, thoracic cord and spinal canal is limited on noncontrast CT examination. There are multilevel degenerative changes with anterior osteophytes and reduced disc heights with a vacuum disc in the lower thoracic spine. Allowing for limitation of noncontrast CT examination, there is no large disc herniation, neural foraminal or spinal canal stenosis. PARASPINAL SOFT TISSUES: The paraspinous soft tissues are normal. OTHER FINDINGS: Unremarkable. IMPRESSION: 1. No acute fracture. 2. Multilevel degenerative changes in the spine.
[2018-06-19 18:57] LABS: PH,URINE 5.5 (4.7-8.0); URINE APPEARANCE CLEAR (CLEAR); URINE BILIRUBIN MODERATE (NEGATIVE); URINE BLOOD NEGATIVE (NEGATIVE); URINE COLOR YELLOW (YELLOW); URINE GLUCOSE (UA) NEGATIVE (NEGATIVE); URINE LEUKOCYTE ESTERASE NEGATIVE Leu/uL (NEGATIVE); URINE PROTEIN NEGATIVE mg/dL (<30 mg/dL); URINE UROBILINOGEN 0.2 E.U./dL (<1 E.U./dL)
--- NOTE | 2018-06-19 19:20 | ED PDOC ---
Arrival/HPI - General Chief Complaint: GI Problem Historian: Patient - History of Present Illness Narrative History of Present Illness (Text): 06/19/18 19:15 68 year old M with pmh of htn and parkinson present complaining of diarrhea and general weakness x3 days. Patient reports presenting to her electronic warfare operator for the same complaints, and after evaluation he was advised to present to the emergency department for further evaluation. Patient denies any fevers, chills, headache, dizziness, chest pain, shortness of breath, dyspnea on exertion, cough, diaphoresis, abdominal pain, nausea, vomiting, back pain, neck pain, or any other complaint. Gastroenterologisyt: Time/Duration: Prior to Arrival Symptom Onset: Sudden Symptom Course: Unchanged Activities at Onset: Light Past Medical History - Provider Review Nursing Documentation Reviewed: Yes Primary Care Provider: Saud Brannon - Infectious Disease Hx of Infectious Diseases: None - Tetanus Immunization Tetanus Immunization: Unknown - Cardiac Hx Cardiac Disorders: Yes Hx Hypertension: Yes - Pulmonary Hx Respiratory Disorders: Yes Hx Asthma: Yes Hx Bronchitis: Yes Hx Pneumonia: Yes Hx Sleep Apnea: Yes (inconclusive sleep study) - Neurological Hx Paralysis: No - HEENT Hx HEENT Disorder: Yes (eyeglasses) - Renal Hx Renal Disorder: No - Endocrine/Metabolic Hx Diabetes Mellitus Type 2: Yes - Hematological/Oncological Hx Blood Transfusions: No - Integumentary Hx Dermatological Disorder: Yes Other/Comment: small healing wound below r knee, left great toe slight redness from gout - Musculoskeletal/Rheumatological Hx Musculoskeletal Disorders: Yes - Gastrointestinal Hx Gastrointestinal Disorders: Yes Other/Comment: ruptured diverticulitis colostomy reversal 1991 - Genitourinary/Gynecological Hx Genitourinary Disorders: No Hx Prostate Problems: (psa high normal/checkup 2xa yr dr urena) - Psychiatric Hx Emotional Abuse: No Hx Physical Abuse: No Hx Substance Use: No - Surgical History Hx Amputation: No Hx Appendectomy: Yes Hx Cardiac Catheterization: No Hx Cholecystectomy: Yes Hx Coronary Stent: No Hx Gastric Bypass Surgery: No Hx Hysterectomy: No Hx Joint Replacement: No Hx Kidney Transplant: No Hx Liver Transplant: No Hx Mastectomy: No Hx Musculoskeletal Surgery: No Hx Open Heart Surgery: No Hx Orthopedic Surgery: No Hx Splenectomy: No Hx Valve Replacement: No Other/Comment: tonsillectomy age 9 - Anesthesia Hx Anesthesia Reactions: Yes (NAUSEA, VOMITING,DIZZINESS) Hx Malignant Hyperthermia: No - Suicidal Assessment Feels Threatened In Home Enviroment: No Family/Social History - Physician Review Nursing Documentation Reviewed: Yes Family/Social History: Unknown Family HX Smoking Status: Former Smoker Hx Alcohol Use: No Hx Substance Use: No Hx Substance Use Treatment: No Allergies/Home Meds Allergies/Adverse Reactions: Allergies Sulfa (Sulfonamide Antibiotics) Allergy (Verified 07/15/17 14:12) RASH Home Medications: Home Meds Medication Instructions Recorded Confirmed Enalapril Maleate 20 mg PO BID 09/13/11 09/17/17 Fluvoxamine Maleate 100 mg PO DAILY 09/13/11 09/17/17 Divalproex Sodium 500 mg PO BID 05/09/15 09/17/17 Docusate [Colace] 100 mg PO DAILY 04/27/16 09/17/17 Multivit-Min/FA/Lycopen/Lutein 1 each PO DAILY 04/27/16 09/17/17 [Centrum Silver Men Tablet] ALPRAZolam [Xanax] 1 mg PO BID 04/30/16 09/17/17 Carvedilol [Coreg] 25 mg PO BID 04/30/16 09/17/17 Carbidopa/Levodopa 50/200 CR 1 tab PO QID 09/09/17 09/17/17 [Sinemet CR] Glimepiride [amaRYL] 2 mg PO BID 09/09/17 09/17/17 MetFORMIN ER [Glucophage XR] 500 mg PO DAILY 09/09/17 09/17/17 Review of Systems - Physician Review All systems were reviewed & negative as marked: Yes - Review of Systems Constitutional: absent: Fevers ENT: absent: Sore Throat, Rhinorrhea, Epistaxis Respiratory: absent: SOB, Cough, Wheezing Cardiovascular: absent: Chest Pain, Palpitations, Syncope Gastrointestinal: Diarrhea. absent: Abdominal Pain, Constipation, Nausea, Vomiting Genitourinary Male: absent: Dysuria, Hematuria Musculoskeletal: absent: Arthralgias, Back Pain, Neck Pain, Myalgias Skin: absent: Rash, Cellulitis Neurological: absent: Headache, Dizziness, Focal Weakness, Facial Droop, Disequilibrium Physical Exam Vital Signs Reviewed: Yes Vital Signs Temp Pulse Resp BP Pulse Ox 06/19/18 18:55 57 L 17 142/81 95 06/19/18 16:42 60 19 105/61 97 06/19/18 14:56 60 19 107/58 L 96 06/19/18 13:22 97.9 F 63 19 95/53 L 96 06/19/18 12:06 98.8 F 70 18 85/57 L 94 L 06/19/18 11:50 97.9 F 65 18 93/55 L 96 Temperature: Afebrile Blood Pressure: Normal Pulse: Regular Respiratory Rate: Normal Appearance: Positive for: Well-Appearing, Non-Toxic, Comfortable Pain Distress: Mild Mental Status: Positive for: Alert and Oriented X 3 - Systems Exam Head: Present: Atraumatic, Normocephalic Pupils: Present: PERRL Extroacular Muscles: Present: EOMI Conjunctiva: Present: Normal Mouth: Present: Dry Neck: Present: Normal Range of Motion Respiratory/Chest: Present: Clear to Auscultation, Good Air Exchange. No: Respiratory Distress, Accessory Muscle Use Cardiovascular: Present: Regular Rate and Rhythm, Normal S1, S2. No: Murmurs Abdomen: No: Tenderness, Distention, Peritoneal Signs Back: Present: Normal Inspection Upper Extremity: Present: Normal Inspection. No: Cyanosis, Edema Lower Extremity: Present: Normal Inspection. No: Edema Neurological: Present: GCS=15, CN II-XII Intact, Speech Normal Skin: Present: Warm, Dry, Normal Color. No: Rashes Psychiatric: Present: Alert, Oriented x 3, Normal Insight, Normal Concentration Medical Decision Making ED Course and Treatment: 06/19/18 19:20 Impression: 68 year old M present complaining of diarrhea and general weakness x3 days. Patient reports presenting to her electronic warfare operator for the same complaints, and after evaluation he was advised to present to the emergency department for further evaluation. Patient denies any fevers, abdominal pain, nausea, vomiting, or any other complaint. Plan: -- EKG -- Urinalysis -- Blood culture -- Reassess and disposition Prior Visits: Notes and results from previous visits were reviewed. Progress Notes: EKG shows NSR at 68 BPM with normal QRS, normal axis, normal intervals, no acute ST/T wave abnormalities Discussed case with Dr. Saud Brannon who wants patient admitted, accepts patient under care for dehydration and acute renal failure. - Lab Interpretations Lab Results: pO2 31 mm/Hg (30-55) 06/19/18 13:00 VBG pH 7.28 (7.32-7.43) L 06/19/18 13:00 VBG pCO2 63.0 (40-60) H 06/19/18 13:00 VBG HCO3 29.6 mmol/l (21-28) H 06/19/18 13:00 VBG Total CO2 31.5 mmol.L (22-28) H 06/19/18 13:00 VBG O2 Sat (Calc) 56.5 % (40-65) 06/19/18 13:00 VBG Base Excess 1.2 mmol/L (0.0-2.0) 06/19/18 13:00 VBG Potassium 4.6 mmol/L (3.6-5.2) 06/19/18 13:00 Sodium 136.0 mmol/L (132-148) 06/19/18 13:00 Chloride 96.0 mmol/L (98-107) L 06/19/18 13:00 Glucose 188 mg/dl (75-110) H 06/19/18 13:00 Lactate 1.7 mmol/L (0.7-2.1) 06/19/18 13:00 FiO2 21.0 % 06/19/18 13:00 PT 13.4 SECONDS (9.4-12.5) H 06/19/18 12:40 INR 1.19 06/19/18 12:40 APTT 29.5 Seconds (26.9-38.3) 06/19/18 12:40 Troponin I < 0.01 ng/mL 06/19/18 12:40 Total Bilirubin 0.6 mg/dL (0.2-1.3) 06/19/18 12:40 AST 43 U/L (17-59) 06/19/18 12:40 ALT 8 U/L (7-56) 06/19/18 12:40 Alkaline Phosphatase 101 U/L (38-126) 06/19/18 12:40 Total Protein 6.6 g/dL (5.8-8.3) 06/19/18 12:40 Albumin 3.7 g/dL (3.0-4.8) 06/19/18 12:40 Globulin 2.9 gm/dL 06/19/18 12:40 Albumin/Globulin Ratio 1.3 (1.1-1.8) 06/19/18 12:40 Lipase 604 U/L (23-300) H 06/19/18 12:40 Urine Color Yellow (YELLOW) 06/19/18 18:46 Urine Appearance Clear (CLEAR) 06/19/18 18:46 Urine pH 5.5 (4.7-8.0) 06/19/18 18:46 Ur Specific [place] 1.025 (1.005-1.035) 06/19/18 18:46 Urine Protein Negative mg/dL (<30 mg/dL) 06/19/18 18:46 Urine Glucose (UA) Negative mg/dL (NEGATIVE) 06/19/18 18:46 Urine Ketones Trace mg/dL (NEGATIVE) H 06/19/18 18:46 Urine Blood Negative (NEGATIVE) 06/19/18 18:46 Urine Nitrate Negative (NEGATIVE) 06/19/18 18:46 Urine Bilirubin Moderate (NEGATIVE) H 06/19/18 18:46 Urine Urobilinogen 0.2 E.U./dL (<1 E.U./dL) 06/19/18 18:46 Ur Leukocyte Esterase Negative Brett/uL (NEGATIVE) 06/19/18 18:46 - RAD Interpretation Radiology Orders: 06/19/18 12:43 ABD & PELVIS W/O PO OR IV CONT [CT] Stat THORACIC SPINE W/O CONT [CT] Stat - Medication Orders Current Medication Orders: Sodium Chloride (Sodium Chloride 0.9%) 1,000 mls @ 125 mls/hr IV .Q8H ORION Last Admin: 06/19/18 13:50 Dose: 125 mls/hr eMAR Start Stop Document 06/19/18 13:50 [id number] (Rec: 06/19/18 13:50 [id number]) Intravenous Solution Start Date 06/19/18 Start Time 12:30 End Date 06/19/18 End time 13:30 Total Infusion Time 60 - Scribe Statement The provider has reviewed the documentation as recorded by the Quan Childs All medical record entries made by the Scribe were at my direction and personally dictated by me. I have reviewed the chart and agree that the record accurately reflects my personal performance of the history, physical exam, medical decision making, and the department course for this patient. I have also personally directed, reviewed, and agree with the discharge instructions and disposition. Disposition/Present on Arrival - Present on Arrival Any Indicators Present on Arrival: No History of DVT/PE: No History of Uncontrolled Diabetes: Yes Urinary Catheter: No History of Decub. Ulcer: No History Surgical Site Infection Following: None - Disposition Have Diagnosis and Disposition been Completed?: Yes Diagnosis: Hypotension, Diarrhea, Weakness Disposition: HOSPITALIZED Disposition Time: 15:00 Condition: FAIR
--- NOTE | 2018-06-19 21:00 | CARD ---
APPROVED REPORT Date of service: 06/19/2018 EKG Measurement Heart [id number] <Conclusion> Normal sinus rhythm Septal infarct, age undetermined Abnormal ECG
--- NOTE | 2018-06-19 22:52 | HP ---
DATE OF EXAM: 06/19/2018 HISTORY OF PRESENT ILLNESS: The patient is a 68-year-old male with a history of advanced Parkinson's disease, gastroesophageal reflux disease, gastroparesis, and chronic diarrhea alternating with constipation who presents to the emergency department with several days of protracted diarrhea. He denies any melena or bright red blood per rectum. There is no fever. No chills. The patient was seen in the office by Dr. Velez today and referred for admission for increasing lethargy and weakness. On examination in the emergency department, the patient was noted to have significant azotemia with BUN of 51 and creatinine of 3.1 and is admitted for gastroenteritis and dehydration. PAST MEDICAL HISTORY: As above includes Parkinson's disease, gastroesophageal reflux disease, type 2 diabetes mellitus, and degenerative joint disease. PAST SURGICAL HISTORY: Includes status post cholecystectomy in the remote past. The patient also has a history of diverticulitis in the past as well as obstructive sleep apnea. There is no history of cancer or coronary disease. ALLERGIES: THE PATIENT REPORTS AN ALLERGY TO SULFA IN WHICH SHE GETS HIVES. CURRENT MEDICATIONS: Include alprazolam 1 mg twice daily, Protonix 40 mg daily, metformin 500 mg daily, glimepiride 2 mg twice daily, Sinemet CR 50/200 one tablet four times a day, carvedilol 25 mg twice daily, fluvoxamine 100 mg daily, enalapril 20 mg daily, and divalproex 500 mg twice daily. SOCIAL HISTORY: The patient is a pipe smoker. There is no history of alcohol use. REVIEW OF SYSTEMS: The patient denies any chest pain or shortness of breath. There is no swelling of the legs. No nausea. No vomiting. No melena. No bright red blood per rectum. No jaundice or rash. PHYSICAL EXAMINATION: GENERAL: The patient is a well-developed, mildly cachectic male in no acute distress. He is slightly lethargic, but arousable. VITAL SIGNS: Blood pressure 95/53, temperature 97.9, pulse 63, and respiratory rate 19. HEENT: Head is normocephalic and atraumatic. Pupils equal, round, and reactive to light. Extraocular movements are intact. NECK: Supple. No thyromegaly. No carotid bruit. No adenopathy. LUNGS: Clear. HEART: Regular rate and rhythm. ABDOMEN: Soft and nontender. Bowel sounds are normal to slightly hyperactive. No guarding. No rebound. EXTREMITIES: Without cyanosis, clubbing, or edema. Decreased skin turgor. NEUROLOGIC: The patient is lethargic, but arousable without focal sensory or motor deficits. There is cogwheeling rigidity of the upper and lower extremities bilaterally. No tremors present at the present time. SKIN: Warm and dry with some decreased turgor. LABORATORY DATA: WBC 13.2, hemoglobin 17.5, and hematocrit 52.4. Sodium 136, potassium 4.5, chloride 96, CO2 of 28, BUN 51, creatinine 1.3, and glucose 176. Lipase is elevated at 604. CT scan of the abdomen and pelvis shows nonspecific enteritis involving the mid small bowel loops, there is postsurgical changes as well as colonic diverticulosis without evidence of diverticulitis. There is also some mild thickening of the bladder and enlargement of the prostate gland. CT scan of the thoracic spine shows mild degenerative changes. Chest x-ray is pending. IMPRESSION: 1. Acute gastroenteritis/dehydration with azotemia. 2. Advanced Parkinson's disease. 3. Type 2 diabetes mellitus. 4. Degenerative joint disease. 5. Gastroesophageal reflux disease. 6. Hypertension. 7. Hypercholesterolemia. 8. Mild polycythemia, which has been chronic. 9. History of bipolar disorder and obsessive-compulsive disorder. 10. Status post cholecystectomy. 11. Possible history of obstructive sleep apnea. PLAN: The patient will be admitted to the remote telemetry unit. The patient will have cautious IV hydration and GI consult with Dr. Velez for diarrhea, check stool for C and S, O and P, and C. difficile toxin. Review medications. Accu-Cheks regular insulin coverage q.i.d., physical therapy and social work for discharge planning. Saud Brannon JD/
[2018-06-20 06:51] LABS: BASO # 0.03 K/mm3 (0.0-2.0); BASO % 0.3 % (0.0-3.0); EOS # 1.3 (0.0-0.7); LYMPH # 2.1 (1.2-3.4); LYMPH % 23.2 % (22.0-35.0); MEAN CELL VOLUME 93.3 fl (80.0-105.0); MEAN CORPUSCULAR HEMOGLOBIN 30.5 pg (25.0-35.0); MEAN CORPUSCULAR HGB CONC 32.7 g/dl (31.0-37.0); MONO # 0.6 (0.1-0.6); MONO % 6.8 % (1.0-6.0); RBC 5.24 10^6/uL (3.5-6.1); RED CELL DISTRIBUTION WIDTH 14.8 % (11.5-14.5); WHITE BLOOD COUNT 9.2 10^3/uL (4.5-11.0)
[2018-06-20 07:07] LABS: ALB/GLOB RATIO 1.2 (1.1-1.8); ALT/SGPT 22 U/L (7-56); AMYLASE 137 U/L (35-125); AST/SGOT 43 U/L (17-59); BLOOD UREA NITROGEN 39 mg/dL (7-21); GFR NON-AFRICAN AMERICAN 50; LIPASE 476 U/L (23-300)
--- NOTE | 2018-06-20 08:26 | CP.PCM.CON ---
<Monico Villanueva - Last Filed: 06/20/18 15:39> History of Present Illness - History of Present Illness History of Present Illness: PGY6 GI Fellow Consult Note Patient is a 68yo male with PMHx significant for Parkinson's disease, HTN, DM2, GERD, PUD, dyslipidemia who presented to the ED with diarrhea. The patient attended a birthday constitution party over the weekend in which several attendees were sick or getting over a viral infection. Saturday evening he began to notice loose watery stool and proceeded to have 3-5 episodes daily for the following two days. He met with his PCP yesterday who referred him to Dr Velez and ultimately the patient was referred to the ED for further evaluation as he ap peared dehydrated and lethargic. On admission, he was noted to have a slight leukocytosis, significant prerenal azotemia and a noncontrast CT scan showed some fluid-filled loops of small bowel. Since arrival, patient has not had any further bowel movements and feels better with IV hydration therapy. Denies any abdominal pain, weight loss, rectal bleeding, nausea, vomiting, fever, chills. Denies recent travel or antibiotic use. 12 system ROS performed and negative except where stated PMHx: See HPI PSHx: Partial colectomy (sigmoid resection with end-to-end anastamosis), appendectomy, cholecystectomy FHx: Discussed with patient and he denies any pertinent family history Social: +tobacco use, denies EtOH or illicit drug use Endo: June 2017 - EGD/Colon - erosive gastritis with healed gastric ulcers; diverticulosis, end-to-end anastamosis in sigmoid colon, internal hemorrhoids Past Patient History - Infectious Disease Hx of Infectious Diseases: None - Tetanus Immunizations Tetanus Immunization: Unknown - Past Social History Smoking Status: Former Smoker - CARDIAC Hx Cardiac Disorders: Yes Hx Hypertension: Yes - PULMONARY Hx Respiratory Disorders: Yes Hx Bronchitis: Yes - NEUROLOGICAL Hx Neurological Disorder: Yes Hx Parkinson's Disease: Yes - HEENT Hx HEENT Problems: No - RENAL Hx Chronic Kidney Disease: No - ENDOCRINE/METABOLIC Hx Endocrine Disorders: Yes Hx Diabetes Mellitus Type 2: Yes - HEMATOLOGICAL/ONCOLOGICAL Hx Blood Disorders: No Hx Hemophilia: No - INTEGUMENTARY Hx Dermatological Problems: No - MUSCULOSKELETAL/RHEUMATOLOGICAL Hx Falls: Yes Hx Fractures: Yes (r) Hx Gout: Yes Hx Unsteady Gait: Yes - GASTROINTESTINAL Hx Gastrointestinal Disorders: No Hx Gall Bladder Disease: Yes Hx Ulcer: Yes - GENITOURINARY/GYNECOLOGICAL Hx Genitourinary Disorders: No - PSYCHIATRIC Hx Psychophysiologic Disorder: No - SURGICAL HISTORY Hx Cholecystectomy: Yes - ANESTHESIA Hx Anesthesia Reactions: Yes (NAUSEA, VOMITING,DIZZINESS) Hx Malignant Hyperthermia: No Meds Allergies/Adverse Reactions: Allergies Allergy/AdvReac Type Severity Reaction Status Date / Time Sulfa (Sulfonamide Allergy RASH Verified 07/15/17 14:12 Antibiotics) - Medications Medications: Current Medications Alprazolam (Xanax) 1 mg PO BID PRN; Protocol PRN Reason: Anxiety Carbidopa/Levodopa (Sinemet Cr) 1 tab PO QID [facility] Carvedilol (Coreg) 25 mg PO BID [facility] Divalproex Sodium (Depakote Dr(*Bid*)) 500 mg PO BID [facility] Sodium Chloride (Sodium Chloride 0.9%) 1,000 mls @ 125 mls/hr IV .Q8H [facility] Last Admin: 06/19/18 13:50 Dose: 125 mls/hr Insulin Human Regular (Humulin R Low) 0 units SC ACHS [facility]; Protocol Physical Exam - Constitutional Appears: Non-toxic, No Acute Distress - Eye Exam Eye Exam: EOMI, PERRL - ENT Exam ENT Exam: Mucous Membranes Moist - Respiratory Exam Respiratory Exam: Clear to Auscultation Bilateral. absent: Rales, Rhonchi, Wheezes - Cardiovascular Exam Cardiovascular Exam: RRR, +S1, +S2 - GI/Abdominal Exam GI & Abdominal Exam: Normal Bowel Sounds, Soft. absent: Distended, Firm, Guarding, Hernia, Mass, Organomegaly, Rigid, Tenderness Additional comments: midline surgical scar - Extremities Exam Extremities exam: Positive for: normal inspection. Negative for: pedal edema - Neurological Exam Neurological exam: Alert, Oriented x3 Additional comments: tremor noted - Psychiatric Exam Psychiatric exam: Anxious - Skin Skin Exam: Dry, Warm Results - Vital Signs Recent Vital Signs: Last Vital Signs Temp 98.0 F 06/20/18 06:00 Pulse 63 06/20/18 06:00 Resp 20 06/20/18 06:00 BP 159/76 H 06/20/18 06:00 Pulse Ox 97 06/20/18 06:00 - Labs Result Diagrams: 06/20/18 06:20 06/20/18 06:20 Labs: Laboratory Results - last 24 hr 06/19/18 06/19/18 06/19/18 12:40 12:40 12:40 WBC 13.2 H RBC 5.61 Hgb 17.5 D Hct 52.4 H MCV 93.4 MCH 31.2 MCHC 33.4 RDW 15.0 H Plt Count 136 MPV 11.4 H Neut % (Auto) 61.5 Lymph % (Auto) 24.7 [place] % (Auto) 5.2 Eos % (Auto) 8.4 H Baso % (Auto) 0.2 Lymph # (Auto) 3.3 [place] # (Auto) 0.7 H Eos # (Auto) 1.1 H Baso # (Auto) 0.03 Absolute Neuts (auto) 8.10 H PT 13.4 H INR 1.19 APTT 29.5 pO2 VBG pH VBG pCO2 VBG HCO3 VBG Total CO2 VBG O2 Sat (Calc) VBG Base Excess VBG Potassium Glucose Lactate FiO2 Sodium 136 Potassium 4.5 Chloride 96 L Carbon Dioxide 28 Anion Gap 17 BUN 51 H Creatinine 3.1 H Est GFR ( Amer) 24 Est GFR (Non-Af Amer) 20 POC Glucose (mg/dL) Random Glucose 176 H Calcium 8.9 Phosphorus Magnesium 1.5 L Total Bilirubin 0.6 AST 43 ALT 8 Alkaline Phosphatase 101 Lactate Dehydrogenase 541 Total Creatine Kinase 152 Troponin I < 0.01 Total Protein 6.6 Albumin 3.7 Globulin 2.9 Albumin/Globulin Ratio 1.3 Amylase Lipase 604 H Venous Blood Potassium Urine Color Urine Appearance Urine pH Ur Specific [place] Urine Protein Urine Glucose (UA) Urine Ketones Urine Blood Urine Nitrate Urine Bilirubin Urine Urobilinogen Ur Leukocyte Esterase 06/19/18 06/19/18 06/19/18 13:00 18:46 20:58 WBC RBC Hgb Hct MCV MCH MCHC RDW Plt Count MPV Neut % (Auto) Lymph % (Auto) [place] % (Auto) Eos % (Auto) Baso % (Auto) Lymph # (Auto) [place] # (Auto) Eos # (Auto) Baso # (Auto) Absolute Neuts (auto) PT INR APTT pO2 31 VBG pH 7.28 L VBG pCO2 63.0 H VBG HCO3 29.6 H VBG Total CO2 31.5 H VBG O2 Sat (Calc) 56.5 VBG Base Excess 1.2 VBG Potassium 4.6 Glucose 188 H Lactate 1.7 FiO2 21.0 Sodium 136.0 Potassium Chloride 96.0 L Carbon Dioxide Anion Gap BUN Creatinine Est GFR ( Amer) Est GFR (Non-Af Amer) POC Glucose (mg/dL) 71 Random Glucose Calcium Phosphorus Magnesium Total Bilirubin AST ALT Alkaline Phosphatase Lactate Dehydrogenase Total Creatine Kinase Troponin I Total Protein Albumin Globulin Albumin/Globulin Ratio Amylase Lipase Venous Blood Potassium 4.6 Urine Color Yellow Urine Appearance Clear Urine pH 5.5 Ur Specific [place] 1.025 Urine Protein Negative Urine Glucose (UA) Negative Urine Ketones Trace H Urine Blood Negative Urine Nitrate Negative Urine Bilirubin Moderate H Urine Urobilinogen 0.2 Ur Leukocyte Esterase Negative 06/20/18 06/20/18 06/20/18 06:20 06:20 07:18 WBC 9.2 D RBC 5.24 Hgb 16.0 Hct 48.9 MCV 93.3 MCH 30.5 MCHC 32.7 RDW 14.8 H Plt Count 110 L MPV 11.0 Neut % (Auto) 55.7 Lymph % (Auto) 23.2 [place] % (Auto) 6.8 H Eos % (Auto) 14.0 H Baso % (Auto) 0.3 Lymph # (Auto) 2.1 [place] # (Auto) 0.6 Eos # (Auto) 1.3 H Baso # (Auto) 0.03 Absolute Neuts (auto) 5.15 PT INR APTT pO2 VBG pH VBG pCO2 VBG HCO3 VBG Total CO2 VBG O2 Sat (Calc) VBG Base Excess VBG Potassium Glucose Lactate FiO2 Sodium 141 Potassium 4.4 Chloride 105 Carbon Dioxide 29 Anion Gap 11 BUN 39 H Creatinine 1.4 Est GFR ( Amer) > 60 Est GFR (Non-Af Amer) 50 POC Glucose (mg/dL) 59 L Random Glucose 65 L Calcium 8.0 L Phosphorus 4.2 Magnesium 1.7 Total Bilirubin 0.4 AST 43 ALT 22 Alkaline Phosphatase 86 Lactate Dehydrogenase Total Creatine Kinase Troponin I Total Protein 5.5 L Albumin 3.0 Globulin 2.6 Albumin/Globulin Ratio 1.2 Amylase 137 H Lipase 476 H Venous Blood Potassium Urine Color Urine Appearance Urine pH Ur Specific [place] Urine Protein Urine Glucose (UA) Urine Ketones Urine Blood Urine Nitrate Urine Bilirubin Urine Urobilinogen Ur Leukocyte Esterase Assessment & Plan - Assessment and Plan (Free Text) Assessment: Patient is a 68yo male with PMHx significant for Parkinson's disease, HTN, DM2, GERD, PUD, dyslipidemia who presented to the ED with diarrhea -Acute diarrheal illness, suspect viral enteritis -Prerenal azotemia -Parkinson's disease Plan: -No further bowel movements since admission -Stool cultures and C diff ordered -Diarrhea management diet with lactose avoidance encouraged -Probiotic once daily for 30 days -Though this episode seems viral in origin the possibility for medication induced alterations in bowel habits should be considered (parkinson's meds and ACEi which can cause both constipation/diarrhea); microscopic colitis previously ruled out - could also entertain possibility of IBS-M - Date & Time Date: 06/20/18 Time: 07:45 <Tabby Velez V - Last Filed: 06/21/18 21:42> Meds - Medications Medications: Current Medications Alprazolam (Xanax) 1 mg PO BID PRN; Protocol PRN Reason: Anxiety Carbidopa/Levodopa (Sinemet Cr) 1 tab PO QID [facility] Last Admin: 06/20/18 21:36 Dose: 1 tab Carvedilol (Coreg) 25 mg PO BID [facility] Last Admin: 06/20/18 17:36 Dose: 25 mg Divalproex Sodium (Depakote Dr(*Bid*)) 500 mg PO BID [facility] Last Admin: 06/20/18 17:37 Dose: 500 mg Sodium Chloride (Sodium Chloride 0.9%) 1,000 mls @ 50 mls/hr IV .Q20H [facility] Last Admin: 06/20/18 14:07 Dose: 50 mls/hr Insulin Human Regular (Humulin R Low) 0 units SC ACHS [facility]; Protocol Last Admin: 06/20/18 21:33 Dose: Not Given Lactobacillus Acidophilus (Bacid Acidophilus) 1 cap PO DAILY [facility] Stop: 07/21/18 10:01 Results - Vital Signs Recent Vital Signs: Last Vital Signs Temp 97.8 F 06/20/18 18:00 Pulse 71 06/20/18 18:00 Resp 20 06/20/18 18:00 BP 182/91 H 06/20/18 18:00 Pulse Ox 94 L 06/20/18 18:00 - Labs Result Diagrams: 06/21/18 05:00 06/21/18 05:00 Labs: Laboratory Results - last 24 hr 06/20/18 06/20/18 06/20/18 06:20 06:20 07:18 WBC 9.2 D RBC 5.24 Hgb 16.0 Hct 48.9 MCV 93.3 MCH 30.5 MCHC 32.7 RDW 14.8 H Plt Count 110 L MPV 11.0 Neut % (Auto) 55.7 Lymph % (Auto) 23.2 [place] % (Auto) 6.8 H Eos % (Auto) 14.0 H Baso % (Auto) 0.3 Lymph # (Auto) 2.1 [place] # (Auto) 0.6 Eos # (Auto) 1.3 H Baso # (Auto) 0.03 Absolute Neuts (auto) 5.15 Sodium 141 Potassium 4.4 Chloride 105 Carbon Dioxide 29 Anion Gap 11 BUN 39 H Creatinine 1.4 Est GFR ( Amer) > 60 Est GFR (Non-Af Amer) 50 POC Glucose (mg/dL) 59 L Random Glucose 65 L Calcium 8.0 L Phosphorus 4.2 Magnesium 1.7 Total Bilirubin 0.4 AST 43 ALT 22 Alkaline Phosphatase 86 Total Protein 5.5 L Albumin 3.0 Globulin 2.6 Albumin/Globulin Ratio 1.2 Amylase 137 H Lipase 476 H 06/20/18 06/20/18 06/20/18 11:16 15:56 21:18 WBC RBC Hgb Hct MCV MCH MCHC RDW Plt Count MPV Neut % (Auto) Lymph % (Auto) [place] % (Auto) Eos % (Auto) Baso % (Auto) Lymph # (Auto) [place] # (Auto) Eos # (Auto) Baso # (Auto) Absolute Neuts (auto) Sodium Potassium Chloride Carbon Dioxide Anion Gap BUN Creatinine Est GFR ( Amer) Est GFR (Non-Af Amer) POC Glucose (mg/dL) 175 H 168 H 155 H Random Glucose Calcium Phosphorus Magnesium Total Bilirubin AST ALT Alkaline Phosphatase Total Protein Albumin Globulin Albumin/Globulin Ratio Amylase Lipase Attending/Attestation - Attestation I have personally seen and examined this patient.: Yes I have fully participated in the care of the patient.: Yes I have reviewed all pertinent clinical information: Yes Notes (Text): This is an addendum to the GI consultation report dictated by the fellow. Lab work and charts reviewed. This patient was initially seen in the office and he was found to be very weak patient gives a history of diarrhea acute onset vomiting abdominal discomfort. Acute kidney injury., Diabetes mellitus Chronic kidney disease Patient feeling better fluid resuscitation done Patient has a history of peptic ulcer disease secondary to NSAID patient was clinically improving recently Continue PPI Continue fluid hydration 06/20/18 22:23
[2018-06-20] MEDS: Insulin Reg-LOW-Coverage SC SCH ×4 (09:50→21:33)
[2018-06-20] MEDS: Divalproex 500 mg DR(BID formulation) PO SCH ×2 (09:50→17:37)
[2018-06-20] MEDS: Carbidopa/Levodopa 50/200 CR PO SCH ×4 (09:50→21:36)
[2018-06-20] MEDS: Sodium Chloride 0.9% 1,000 ML IV SCH (09:51)
[2018-06-20] MEDS ORDERED: Sodium Chloride 0.9% 1,000 ML IV SCH (13:44)
--- NOTE | 2018-06-20 13:48 | CP.PCM.PN ---
Subjective - Date & Time of Evaluation Date of Evaluation: 06/20/18 Time of Evaluation: 12:00 - Subjective Subjective: OOB in chair, NAD, denies abd pain Objective - Vital Signs/Intake and Output Vital Signs (last 24 hours): Temp Pulse Resp BP Pulse Ox 98.0 F 74 20 159/76 H 97 06/20/18 06:00 06/20/18 10:00 06/20/18 06:00 06/20/18 09:49 06/20/18 06:00 - Medications Medications: Current Medications Alprazolam (Xanax) 1 mg PO BID PRN; Protocol PRN Reason: Anxiety Carbidopa/Levodopa (Sinemet Cr) 1 tab PO QID [facility] Last Admin: 06/20/18 09:50 Dose: 1 tab Carvedilol (Coreg) 25 mg PO BID [facility] Last Admin: 06/20/18 09:49 Dose: 25 mg Divalproex Sodium (Depakote Dr(*Bid*)) 500 mg PO BID [facility] Last Admin: 06/20/18 09:50 Dose: 500 mg Sodium Chloride (Sodium Chloride 0.9%) 1,000 mls @ 50 mls/hr IV .Q20H [facility] Insulin Human Regular (Humulin R Low) 0 units SC ACHS [facility]; Protocol Last Admin: 06/20/18 09:50 Dose: Not Given - Labs Labs: 06/20/18 06:20 06/20/18 06:20 PT 13.4 SECONDS (9.4-12.5) H 06/19/18 12:40 INR 1.19 06/19/18 12:40 APTT 29.5 Seconds (26.9-38.3) 06/19/18 12:40 - Respiratory Exam Respiratory Exam: Clear to Ausculation Bilateral, NORMAL BREATHING PATTERN - Cardiovascular Exam Cardiovascular Exam: REGULAR RHYTHM - GI/Abdominal Exam GI & Abdominal Exam: Soft, Normal Bowel Sounds - Extremities Exam Extremities Exam: Normal Inspection - Neurological Exam Neurological Exam: Abnormal Gait, Alert, Awake - Skin Skin Exam: Dry, Warm Assessment and Plan (1) Diarrhea Status: Acute (2) Hypotension Status: Acute (3) Parkinsons disease Status: Chronic (4) Pancreatitis Status: Acute - Assessment and Plan (Free Text) Plan: taper IVF, monitor renal function, GI follow-up, repesat amylase/lipase
[2018-06-21 07:06] LABS: BASO # 0.03 K/mm3 (0.0-2.0); BASO % 0.4 % (0.0-3.0); EOS % 14.4 % (1.5-5.0); HEMOGLOBIN 15.1 g/dL (14.0-18.0); LYMPH # 2.4 (1.2-3.4); LYMPH % 34.4 % (22.0-35.0); MEAN CELL VOLUME 93.6 fl (80.0-105.0); MEAN CORPUSCULAR HEMOGLOBIN 30.4 pg (25.0-35.0); MEAN CORPUSCULAR HGB CONC 32.5 g/dl (31.0-37.0); MEAN PLATELET VOLUME 11.1 fl (7.0-11.0); MONO # 0.4 (0.1-0.6); MONO % 6.2 % (1.0-6.0); RBC 4.97 10^6/uL (3.5-6.1); RED CELL DISTRIBUTION WIDTH 14.6 % (11.5-14.5)
[2018-06-21 07:37] LABS: ALB/GLOB RATIO 1.1 (1.1-1.8); ALBUMIN 2.9 g/dL (3.0-4.8); ALT/SGPT 16 U/L (7-56); AST/SGOT 37 U/L (17-59); BLOOD UREA NITROGEN 19 mg/dL (7-21); CALCIUM 8.6 mg/dL (8.4-10.5); GFR NON-AFRICAN AMERICAN > 60
[2018-06-21] MEDS: Lactobacillus Acidophilus 500 MU Cap PO SCH (10:17)
[2018-06-21] MEDS: Insulin Reg-LOW-Coverage SC SCH ×4 (10:18→21:09)
[2018-06-21] MEDS: Divalproex 500 mg DR(BID formulation) PO SCH ×2 (10:18→18:09)
[2018-06-21] MEDS: Carbidopa/Levodopa 50/200 CR PO SCH ×4 (10:18→21:09)
--- NOTE | 2018-06-21 10:45 | CP.PCM.PN ---
Subjective - Date & Time of Evaluation Date of Evaluation: 06/21/18 Time of Evaluation: 09:50 - Subjective Subjective: OOB in chair, NAD, denies chest pain, no SOB Objective - Vital Signs/Intake and Output Vital Signs (last 24 hours): Temp Pulse Resp BP Pulse Ox 98.3 F 57 L 20 170/94 H 94 L 06/21/18 09:02 06/21/18 09:02 06/21/18 09:02 06/21/18 09:02 06/21/18 09:02 Intake and Output: 06/21/18 06/21/18 06:59 18:59 Intake Total 240 Output Total 300 Balance -60 - Medications Medications: Current Medications Alprazolam (Xanax) 1 mg PO BID PRN; Protocol PRN Reason: Anxiety Last Admin: 06/21/18 10:25 Dose: 1 mg Carbidopa/Levodopa (Sinemet Cr) 1 tab PO QID [facility] Last Admin: 06/21/18 10:18 Dose: 1 tab Carvedilol (Coreg) 25 mg PO BID [facility] Last Admin: 06/21/18 10:18 Dose: 25 mg Divalproex Sodium (Depakote Dr(*Bid*)) 500 mg PO BID [facility] Last Admin: 06/21/18 10:18 Dose: 500 mg Insulin Human Regular (Humulin R Low) 0 units SC [facility]; Protocol Last Admin: 06/21/18 10:18 Dose: Not Given Lactobacillus Acidophilus (Bacid Acidophilus) 1 cap PO DAILY [facility] Stop: 07/21/18 10:01 Last Admin: 06/21/18 10:17 Dose: 1 cap Losartan Potassium (Cozaar) 50 mg PO DAILY [facility] Last Admin: 06/21/18 10:18 Dose: 50 mg - Labs Labs: 06/21/18 05:00 06/21/18 05:00 PT 13.4 SECONDS (9.4-12.5) H 06/19/18 12:40 INR 1.19 06/19/18 12:40 APTT 29.5 Seconds (26.9-38.3) 06/19/18 12:40 - Respiratory Exam Respiratory Exam: Clear to Ausculation Bilateral, NORMAL BREATHING PATTERN - Cardiovascular Exam Cardiovascular Exam: REGULAR RHYTHM - GI/Abdominal Exam GI & Abdominal Exam: Soft, Normal Bowel Sounds - Extremities Exam Extremities Exam: Normal Inspection - Neurological Exam Neurological Exam: Abnormal Gait, Alert, Awake - Skin Skin Exam: Dry, Warm Assessment and Plan (1) Diarrhea Status: Acute (2) Hypotension Status: Acute (3) Parkinsons disease Status: Chronic (4) Pancreatitis Status: Acute - Assessment and Plan (Free Text) Plan: DC IVF, check labs in am, restart antihypertensive meds due to elevated bp
--- NOTE | 2018-06-21 21:42 | CP.PCM.PN ---
Subjective - Date & Time of Evaluation Date of Evaluation: 06/21/18 Time of Evaluation: 14:30 - Subjective Subjective: This patient was seen and evaluated the area. Patient's was at bedside. Feeling much better. Tolerating solid food. There is significant improvement of renal function. Overall feels much improved. Objective - Vital Signs/Intake and Output Vital Signs (last 24 hours): Temp Pulse Resp BP Pulse Ox 98.3 F 64 19 170/94 H 97 06/21/18 16:34 06/21/18 18:00 06/21/18 16:34 06/21/18 09:02 06/21/18 16:34 Intake and Output: 06/21/18 06/22/18 18:59 06:59 Intake Total 240 Output Total 300 Balance -60 - Medications Medications: Current Medications Alprazolam (Xanax) 1 mg PO BID PRN; Protocol PRN Reason: Anxiety Last Admin: 06/21/18 10:25 Dose: 1 mg Carbidopa/Levodopa (Sinemet Cr) 1 tab PO QID [facility] Last Admin: 06/21/18 21:09 Dose: 1 tab Carvedilol (Coreg) 25 mg PO BID [facility] Last Admin: 06/21/18 18:08 Dose: 25 mg Divalproex Sodium (Depakote Dr(*Bid*)) 500 mg PO BID [facility] Last Admin: 06/21/18 18:09 Dose: 500 mg Insulin Human Regular (Humulin R Low) 0 units SC [facility]; Protocol Last Admin: 06/21/18 21:09 Dose: Not Given Lactobacillus Acidophilus (Bacid Acidophilus) 1 cap PO DAILY [facility] Stop: 07/21/18 10:01 Last Admin: 06/21/18 10:17 Dose: 1 cap Losartan Potassium (Cozaar) 50 mg PO DAILY [facility] Last Admin: 06/21/18 10:18 Dose: 50 mg - Labs Labs: 06/21/18 05:00 06/21/18 05:00 PT 13.4 SECONDS (9.4-12.5) H 06/19/18 12:40 INR 1.19 06/19/18 12:40 APTT 29.5 Seconds (26.9-38.3) 06/19/18 12:40 - Head Exam Head Exam: ATRAUMATIC, NORMOCEPHALIC - Eye Exam Eye Exam: EOMI. absent: PERRL - Respiratory Exam Respiratory Exam: NORMAL BREATHING PATTERN. absent: Accessory Muscle Use, Stridor - Cardiovascular Exam Cardiovascular Exam: REGULAR RHYTHM, +S1, +S2. absent: JVD - GI/Abdominal Exam GI & Abdominal Exam: Soft, Normal Bowel Sounds. absent: Tenderness, Mass - Neurological Exam Neurological Exam: Alert, Awake, Oriented x3 Assessment and Plan - Assessment and Plan (Free Text) Assessment: This 68-year-old patient with a diabetes mellitus history of peptic ulcer disease hypertension dyslipidemia admitted following diarrhea acute kidney injury. Patient haD IV hydration with a significant improvement of the renal function. History of peptic ulcer disease patient was being weaned off from PPI to H2 blockers. Will restart low-dose PPI. Eventually should be able to be maintained on H2 blockers. History of change of bowel habits WITH episodes of constipation diarrhea had a colonoscopy done in the past reviewed. It is reasonable to just avoid the constipation the diarrhea could be pseudo-diarrhea. I had a lengthy discussion with the patient and also patient's . We will continue to closely follow-up his care and suggest further recommendations based on the clinical course. Thank you Dr. Brannon for allowing us to participate in the care of the patient
[2018-06-22 06:59] LABS: ALB/GLOB RATIO 1.1 (1.1-1.8); ALBUMIN 3.4 g/dL (3.0-4.8); ALT/SGPT 14 U/L (7-56); AMYLASE 66 U/L (35-125); AST/SGOT 37 U/L (17-59); BLOOD UREA NITROGEN 14 mg/dL (7-21); CALCIUM 9.2 mg/dL (8.4-10.5); GFR NON-AFRICAN AMERICAN > 60; LIPASE 140 U/L (23-300)
[2018-06-22 07:14] LABS: BASO # 0.02 K/mm3 (0.0-2.0); BASO % 0.3 % (0.0-3.0); EOS # 0.9 (0.0-0.7); EOS % 11.9 % (1.5-5.0); HEMOGLOBIN 16.1 g/dL (14.0-18.0); LYMPH # 2.5 (1.2-3.4); LYMPH % 33.9 % (22.0-35.0); MEAN CELL VOLUME 91.6 fl (80.0-105.0); MEAN CORPUSCULAR HEMOGLOBIN 30.7 pg (25.0-35.0); MEAN CORPUSCULAR HGB CONC 33.5 g/dl (31.0-37.0); MEAN PLATELET VOLUME 10.3 fl (7.0-11.0); MONO # 0.5 (0.1-0.6); MONO % 6.7 % (1.0-6.0); RBC 5.24 10^6/uL (3.5-6.1); RED CELL DISTRIBUTION WIDTH 14.2 % (11.5-14.5); WHITE BLOOD COUNT 7.3 10^3/uL (4.5-11.0)
[2018-06-22] MEDS: Insulin Reg-LOW-Coverage SC SCH ×4 (08:28→22:35)
[2018-06-22 09:20] VITALS: RESP 20
[2018-06-22] MEDS: Lactobacillus Acidophilus 500 MU Cap PO SCH (09:24)
[2018-06-22] MEDS: Divalproex 500 mg DR(BID formulation) PO SCH ×2 (09:25→17:57)
[2018-06-22] MEDS: Carbidopa/Levodopa 50/200 CR PO SCH ×4 (09:26→21:15)
--- NOTE | 2018-06-22 13:07 | CP.PCM.PN ---
Subjective - Date & Time of Evaluation Date of Evaluation: 06/22/18 Time of Evaluation: 12:45 - Subjective Subjective: OBB in chair, NAD, no diarrhea Objective - Vital Signs/Intake and Output Vital Signs (last 24 hours): Temp Pulse Resp BP Pulse Ox 97.4 F L 56 L 20 184/90 H 100 06/22/18 09:19 06/22/18 09:25 06/22/18 09:19 06/22/18 09:19 06/22/18 09:19 Intake and Output: 06/22/18 06/22/18 06:59 18:59 Intake Total 120 Output Total 250 Balance -130 - Medications Medications: Current Medications Alprazolam (Xanax) 1 mg PO BID PRN; Protocol PRN Reason: Anxiety Last Admin: 06/22/18 09:46 Dose: 1 mg Amlodipine Besylate (Norvasc) 2.5 mg PO DAILY [facility] Carbidopa/Levodopa (Sinemet Cr) 1 tab PO QID [facility] Last Admin: 06/22/18 09:26 Dose: 1 tab Carvedilol (Coreg) 25 mg PO BID [facility] Last Admin: 06/22/18 09:25 Dose: Not Given Divalproex Sodium (Depakote Dr(*Bid*)) 500 mg PO BID [facility] Last Admin: 06/22/18 09:25 Dose: 500 mg Insulin Human Regular (Humulin R Low) 0 units SC [facility]; Protocol Last Admin: 06/22/18 08:28 Dose: Not Given Lactobacillus Acidophilus (Bacid Acidophilus) 1 cap PO DAILY [facility] Stop: 07/21/18 10:01 Last Admin: 06/22/18 09:24 Dose: 1 cap Losartan Potassium (Cozaar) 100 mg PO DAILY [facility] - Labs Labs: 06/22/18 05:00 06/22/18 05:00 PT 13.4 SECONDS (9.4-12.5) H 06/19/18 12:40 INR 1.19 06/19/18 12:40 APTT 29.5 Seconds (26.9-38.3) 06/19/18 12:40 - Respiratory Exam Respiratory Exam: Clear to Ausculation Bilateral, NORMAL BREATHING PATTERN - Cardiovascular Exam Cardiovascular Exam: REGULAR RHYTHM - GI/Abdominal Exam GI & Abdominal Exam: Soft, Normal Bowel Sounds - Extremities Exam Extremities Exam: Normal Inspection - Neurological Exam Neurological Exam: Abnormal Gait, Alert, Awake - Skin Skin Exam: Dry, Warm Assessment and Plan (1) Diarrhea Status: Resolved (2) Hypotension Status: Resolved (3) Parkinsons disease Status: Chronic (4) Pancreatitis Status: Resolved (5) Hypertension Status: Acute - Assessment and Plan (Free Text) Plan: inrease Losartan 100mg qd, add amlodipine, DC to home when br stable
--- NOTE | 2018-06-22 18:58 | CP.PCM.PN ---
Subjective - Date & Time of Evaluation Date of Evaluation: 06/22/18 Time of Evaluation: 12:30 - Subjective Subjective: Patient comfortable tolerating diet None no episodes of the diarrhea improved. Patient had a history of gastric ulcers in the past repeat endoscopy showed healed ulcer H. pylori negative colonoscopy done last year for episodes of diarrhea I did not reveal any microscopic colitis history of colon resection in the sigmoid colon divert iculosis Objective - Vital Signs/Intake and Output Vital Signs (last 24 hours): Temp Pulse Resp BP Pulse Ox 97.4 F L 70 20 152/100 H 100 06/22/18 09:19 06/22/18 17:57 06/22/18 09:19 06/22/18 17:59 06/22/18 09:19 Intake and Output: 06/22/18 06/22/18 06:59 18:59 Intake Total 120 Output Total 250 Balance -130 - Medications Medications: Current Medications Alprazolam (Xanax) 1 mg PO BID PRN; Protocol PRN Reason: Anxiety Last Admin: 06/22/18 09:46 Dose: 1 mg Amlodipine Besylate (Norvasc) 2.5 mg PO DAILY [facility] Last Admin: 06/22/18 13:14 Dose: 2.5 mg Carbidopa/Levodopa (Sinemet Cr) 1 tab PO QID [facility] Last Admin: 06/22/18 17:58 Dose: 1 tab Carvedilol (Coreg) 25 mg PO BID [facility] Last Admin: 06/22/18 17:57 Dose: 25 mg Divalproex Sodium (Depakote Dr(*Bid*)) 500 mg PO BID [facility] Last Admin: 06/22/18 17:57 Dose: 500 mg Insulin Human Regular (Humulin R Low) 0 units SC [facility]; Protocol Last Admin: 06/22/18 17:58 Dose: Not Given Lactobacillus Acidophilus (Bacid Acidophilus) 1 cap PO DAILY [facility] Stop: 07/21/18 10:01 Last Admin: 06/22/18 09:24 Dose: 1 cap Losartan Potassium (Cozaar) 100 mg PO DAILY [facility] - Labs Labs: 06/22/18 05:00 06/22/18 05:00 PT 13.4 SECONDS (9.4-12.5) H 06/19/18 12:40 INR 1.19 06/19/18 12:40 APTT 29.5 Seconds (26.9-38.3) 06/19/18 12:40 - Head Exam Head Exam: ATRAUMATIC, NORMOCEPHALIC - Eye Exam Pupil Exam: NORMAL ACCOMODATION, PERRL - ENT Exam ENT Exam: Mucous Membranes Moist - Neck Exam Neck Exam: Full ROM. absent: Lymphadenopathy - Respiratory Exam Respiratory Exam: NORMAL BREATHING PATTERN. absent: Accessory Muscle Use - Cardiovascular Exam Cardiovascular Exam: REGULAR RHYTHM, +S1, +S2. absent: JVD - GI/Abdominal Exam GI & Abdominal Exam: Soft, Normal Bowel Sounds. absent: Tenderness, Mass - Neurological Exam Neurological Exam: Alert, Altered, Oriented x3 Assessment and Plan - Assessment and Plan (Free Text) Assessment: 1. Acute diarrhea improved probably secondary to gastroenteritis 2. Mild elevated pancreatic enzymes probably secondary to gastroenteritis. CT scan reviewed showed a normal pancreatic counter less likely gallstone also to be considered will request ultrasound scan of the abdomen. Patient did have a CT done which showed no calcified gallstones. 3. History of gastric ulcer secondary to NSAID induced H. pylori negative repeat endoscopy showed healed ulcer. Patient was on PPI is been slowly weaned off presently not taking for the past 1 week no PPI H2 blockers 4. History of diarrhea intermittently in the past colonoscopy biopsy did not reveal microscopic colitis. Status post sigmoid colon resection for div erticular disease 5,Other comorbidities include diabetes mellitus hypertension, Parkinson's disease 6. Acute kidney injury probably secondary to dehydration is improved Plan: 1. Increase p.o. intake 2. Ultrasound scan of the abdomen to rule out any gallstones 3. Patient is off PPI or H2 blockers is reasonable to consider H2 blockers or prophylaxis with the patient need to be on baby aspirin. Patient had a history of peptic ulcer disease in the past of gastric ulcer probably secondary to the NSAIDs
[2018-06-23] MEDS ORDERED: DiphenhydrAMINE 12.5 mg/5 ml LIQ UD (5 ml) PO STA (02:48)
--- NOTE | 2018-06-23 07:33 | CP.PCM.PN ---
Subjective - Date & Time of Evaluation Date of Evaluation: 06/23/18 Time of Evaluation: 07:20 - Subjective Subjective: NAD, denies chest pain, no SOB Objective - Vital Signs/Intake and Output Vital Signs (last 24 hours): Temp Pulse Resp BP Pulse Ox 97.4 F L 64 20 152/100 H 100 06/22/18 09:19 06/22/18 22:00 06/22/18 09:19 06/22/18 17:59 06/22/18 09:19 Intake and Output: 06/23/18 06/23/18 06:59 18:59 Intake Total 240 Output Total 975 Balance -735 - Medications Medications: Current Medications Alprazolam (Xanax) 1 mg PO BID PRN; Protocol PRN Reason: Anxiety Last Admin: 06/22/18 21:15 Dose: 1 mg Amlodipine Besylate (Norvasc) 5 mg PO DAILY [facility] Carbidopa/Levodopa (Sinemet Cr) 1 tab PO QID [facility] Last Admin: 06/22/18 21:15 Dose: 1 tab Carvedilol (Coreg) 25 mg PO BID [facility] Last Admin: 06/22/18 17:57 Dose: 25 mg Divalproex Sodium (Depakote Dr(*Bid*)) 500 mg PO BID [facility] Last Admin: 06/22/18 17:57 Dose: 500 mg Insulin Human Regular (Humulin R Low) 0 units SC [facility]; Protocol Last Admin: 06/22/18 22:35 Dose: Not Given Lactobacillus Acidophilus (Bacid Acidophilus) 1 cap PO DAILY [facility] Stop: 07/21/18 10:01 Last Admin: 06/22/18 09:24 Dose: 1 cap Losartan Potassium (Cozaar) 100 mg PO DAILY [facility] - Labs Labs: 06/22/18 05:00 06/22/18 05:00 PT 13.4 SECONDS (9.4-12.5) H 06/19/18 12:40 INR 1.19 06/19/18 12:40 APTT 29.5 Seconds (26.9-38.3) 06/19/18 12:40 - Respiratory Exam Respiratory Exam: Clear to Ausculation Bilateral, NORMAL BREATHING PATTERN - Cardiovascular Exam Cardiovascular Exam: REGULAR RHYTHM - GI/Abdominal Exam GI & Abdominal Exam: Soft, Normal Bowel Sounds - Extremities Exam Extremities Exam: Normal Inspection - Neurological Exam Neurological Exam: Abnormal Gait, Alert, Awake - Skin Skin Exam: Dry, Warm Assessment and Plan (1) Diarrhea Status: Resolved (2) Hypotension Status: Resolved (3) Parkinsons disease Status: Chronic (4) Pancreatitis Status: Resolved (5) Hypertension Status: Acute - Assessment and Plan (Free Text) Plan: increase amlodipine 5mg qd, renal/HTN consult for bp control, PT and TCU eval
[2018-06-23] MEDS: Insulin Reg-LOW-Coverage SC SCH ×3 (07:54→18:18)
[2018-06-23] MEDS: Lactobacillus Acidophilus 500 MU Cap PO SCH (09:32)
[2018-06-23] MEDS: Divalproex 500 mg DR(BID formulation) PO SCH ×2 (09:32→18:18)
[2018-06-23] MEDS: Carbidopa/Levodopa 50/200 CR PO SCH ×3 (09:32→18:17)
[2018-06-23 17:00] VITALS: BP 146/88; PULSE 96; TEMP 98; O2SAT 95
--- NOTE | 2018-06-23 19:45 | CON ---
DATE OF CONSULTATION: 06/23/2018 REASON FOR CONSULTATION: Acute kidney injury, uncontrolled hypertension. HISTORY OF PRESENTING ILLNESS: A 68-year-old male, initially admitted on 06/19/2018 with complaints of severe diarrhea, dehydration. At the time of admission, the patient was hypotensive. His pressure was as low as 87/57. His hemoglobin was 17.5, WBC count was 13. His creatinine was 3.1. His BUN was 51. The patient was treated with IV fluids. He received normal saline at 125 mL/hour initially, then his IV fluids were changed to normal saline at 50 mL/hour. Consultation requested now for severe uncontrolled hypertension. His blood pressure was as high as 190/88 yesterday. PAST MEDICAL AND SURGICAL HISTORY: NIDDM, hypertension, Parkinson's disease, hyperlipidemia, no known CAD, history of gallbladder surgery, history of laparotomy and colostomy for diverticulitis, and history of reversal of colostomy. FAMILY HISTORY: Noncontributory. SOCIAL HISTORY: Ex-pipe smoker, no alcohol use, no IV drug abuse. ALLERGIES: SULFA. CURRENT MEDICATIONS: Coreg 25 b.i.d., losartan 100, Depakote 500 b.i.d., amlodipine 5, Sinemet 1 tab q.i.d., Xanax. MEDICATIONS AT HOME: Had been enalapril 20 b.i.d., Coreg 25 b.i.d., metformin. REVIEW OF SYSTEMS: All systems are reviewed, pertinent positives as mentioned in the history of presenting illness, rest unremarkable. PHYSICAL EXAMINATION: GENERAL: Elderly male, lying in bed. VITAL SIGNS: Blood pressure 186/92, heart rate 62, respiratory rate 20, and temperature 97.2. HEENT: Normocephalic, atraumatic, positive pallor. NECK: Supple, no JVD. LUNGS: Bilateral equal air entry, no rales, no rhonchi. CARDIAC: S1 and S2, regular rate and rhythm, no murmur, no rub. ABDOMEN: Obese, distended, soft, nontender, bowel sounds present. EXTREMITIES: No lower extremity edema. LABORATORY DATA: WBC 7.3, hemoglobin 16, hematocrit 48, platelets 95. Sodium 139, potassium 4.6, chloride 100, CO2 of 35, BUN 14, creatinine 1, glucose 105, calcium 9.2, phosphorus 3.5, magnesium 1.5, albumin 3.4. Urinalysis, yellow, clear, pH 5.5, specific gravity 1025, protein negative, ketones trace, blood negative. ASSESSMENT: 1. Acute kidney injury in the setting of severe diarrhea/ABIEL inhibitor, now resolved. 2. History of hypertension, the patient was hypotensive when he came in. Pressure was 87/50. The patient got IV fluid resuscitation, now with severe hypertension. 3. Rys-iwrzgos-gtklooyat diabetes mellitus. 4. History of Parkinson's disease. 5. No known coronary artery disease. PLAN: 1. The patient was on Coreg 25 b.i.d. and enalapril 20 b.i.d. at home, okay to discharge the patient on Coreg 25 b.i.d., enalapril 20 b.i.d. and amlodipine 5 mg daily. 2. Outpatient followup blood pressure would be required. 3. Acute kidney injury has resolved, which was largely prerenal azotemia. 4. Okay to restart metformin since acute kidney injury has resolved. 5. Okay to discharge with close outpatient followup. Reanna Barr MD
--- NOTE | 2018-06-25 03:19 | DS ---
HOSPITAL COURSE The patient is a 68-year-old female with a history of advanced Parkinson's disease admitted through the emergency department on 06/19/2018 with severe dehydration and azotemia with a creatinine of 3.1 due to gastroenteritis with persistent diarrhea over several days. The patient received IV hydration with improvement of her BUN and creatinine. She was seen in consultation by GI Dr. Velez. Her hospital course was complicated by uncontrolled hypertension for which she was started on amlodipine 5 mg daily as well as being maintained on losartan and carvedilol. The patient was medically stable for discharge to home on 06/23/2018. Physical examination and vital signs are as per progress note of 06/23/2018. IMPRESSION 1. Gastroenteritis with dehydration and azotemia, improved status post hydration. 2. Advanced Parkinson's history disease. 3. Type 2 diabetes mellitus. 4. Degenerative joint disease. 5. Gastroesophageal reflux disease. 6. Hypertension. 7. Hypercholesterolemia. 8. Mild chronic polycythemia. 9. History of bipolar disorder and obsessive-compulsive disorder. PLAN: The patient was discharged to home on the following medications; amlodipine 5 mg daily, carvedilol 25 mg twice daily, enalapril 20 mg twice, fluvoxamine malate 100 mg daily, glimepiride 2 mg twice daily, Sinemet CR 50/200 mg four times daily, Xanax 1 mg twice daily and valproic acid 500 mg twice daily. She was advised to discontinue her metformin, which she takes at home due to diarrhea. She will be maintained on a consistent carbohydrate diet. Activities ad libitum. She will be followed as an outpatient within 1 to 2 weeks in my office. PIERRE Kingston MD
== END 2018-06-23 19:19 | disposition home health service (06) | DRG 391 ==
LOC: ED 11:49 → ERH 15:23 → 3RSO 19:52
PROVIDERS: ADMIT Internal Medicine; ATTEND Internal Medicine
DX: K52.9 Noninfective gastroenteritis and colitis, unspecified (principal); K85.90 Acute pancreatitis without necrosis or infection, unspecified; N17.9 Acute kidney failure, unspecified; E86.0 Dehydration; E11.43 Type 2 diabetes mellitus with diabetic autonomic (poly)neuropathy; K31.84 Gastroparesis; I10 Essential (primary) hypertension; I95.9 Hypotension, unspecified; G20 Parkinson's disease; K21.9 Gastro-esophageal reflux disease without esophagitis; K59.00 Constipation, unspecified; E78.00 Pure hypercholesterolemia, unspecified; E78.5 Hyperlipidemia, unspecified; F17.290 Nicotine dependence, other tobacco product, uncomplicated; D75.1 Secondary polycythemia; G47.33 Obstructive sleep apnea (adult) (pediatric); Z79.4 Long term (current) use of insulin; Z88.2 Allergy status to sulfonamides; Z87.11 Personal history of peptic ulcer disease